=== PATIENT | male | born 1990 | race Caucasian/White ===

== ENCOUNTER 2020-01-11 12:29 | Outpatient (REF) | payer MEDICARE, MEDICAID, SELFPAY ==
[2020-01-11 13:59] LABS: MANUAL DIFF FLAG NO
[2020-01-11 14:04] LABS: Basophils Percent Auto 0.6 % (0-2); Eosinophils Absolute Auto 0.2 X10*3/uL (0.0-0.4); Eosinophils Percent Auto 4.2 % (0-4); Hematocrit 39.8 % (42-52); Hemoglobin 13.3 g/dl (14.0-18.0); Imm Gran Abs Auto 0.01 X10*3/uL (0.00-0.03); Imm Gran Pct Auto 0.3 % (0.0-0.4); Lymphocytes Absolute Auto 1.2 X10*3/uL (1.2-4.9); Lymphocytes Percent Auto 32.7 % (20-40); Mean Corpuscular HGB Conc 33.4 g/dl (31.0-36.0); Mean Corpuscular Hemoglobin 30.9 pg (27.0-33.0); Mean Corpuscular Volume 92.3 fL (80-98); Mean Platelet Volume 9.8 fL (9.4-12.4); Monocytes Absolute Auto 0.4 X10*3/uL (0.1-1.2); Monocytes Percent Auto 10.4 % (2-11); Neutrophils Absolute Auto 1.8 X10*3/uL (2.0-8.3); Neutrophils Percent Auto 51.8 % (45-73); Platelet Count 249 X10*3/uL (160-400); Red Blood Count 4.31 X10*6/uL (4.60-5.80); Red Cell Distribution Width 11.9 % (11.0-16.0); White Blood Count 3.6 X10*3/uL (4.8-10.8)
[2020-01-11 14:14] LABS: Estimated Average Glucose 108 mg/dL; Hemoglobin A1c % 5.4 %
[2020-01-11 14:33] LABS: Anion Gap 9 (12-20); Blood Urea Nitrogen 13 mg/dL (9-16); Calcium 8.6 mg/dL (8.4-10.2); Carbon Dioxide 27 mmol/L (22-29); Chloride 104 mmol/L (96-108); Cholesterol 178 mg/dL; Estimated Glomerular Filt Rate > 60; Glucose Fasting 95 mg/dL (60-99); HDL Cholesterol 50 mg/dL; LDL Cholesterol Calculated 116 mg/dl; Potassium 4.2 mmol/l (3.3-5.1); Sodium 136 mmol/L (135-145); Triglycerides 62 mg/dL
[2020-01-11 14:49] LABS: Thyroid Stimulating Hormone 1.33 uIU/mL (0.32-4.0)
[2020-01-12 13:22] LABS: Prolactin 4.9 ng/mL (2.0-18.0)
== END 2020-01-11 12:30 | disposition home or self-care (01) ==
LOC: HO.10HDL 12:29
PROVIDERS: Visit Provider Psychiatry & Neurology Child & Adolescent Psychiatry
DX: F63.81 Intermittent explosive disorder (principal); Z79.899 Other long term (current) drug therapy
CPT/HCPCS: 36415; 80048; 80061; 83036; 84146; 84443; 85025

== ENCOUNTER → 2020-02-21 10:20 | Outpatient (REF) | payer MEDICARE, MEDICAID, SELFPAY ==
--- NOTE | 2020-02-21 10:27 | ECG_ITS ---
Test Reason : HIGH RISK MED Blood Pressure : / mmHG Vent. Rate : 065 BPM Atrial Rate : 065 BPM P-R Int : 148 ms QRS Dur : 102 ms QT Int : 376 ms P-R-T Axes : 040 053 088 degrees QTc Int : 391 ms Normal sinus rhythm Incomplete right bundle branch block Borderline ECG When compared with ECG of 20-FEB-2019 16:55, No significant change was found Referred By: Osmar Hidalgo Electronically Signed By:ISRRAEL GANN MD
== END ==
LOC: HO.CARD 10:20
PROVIDERS: Visit Provider Psychiatry & Neurology Child & Adolescent Psychiatry
DX: Z79.899 Other long term (current) drug therapy (principal)
CPT/HCPCS: 93005

== ENCOUNTER → 2020-07-22 15:37 | Outpatient (REF) | payer MEDICARE, MEDICAID, SELFPAY ==
--- NOTE | 2020-07-22 15:43 | ECG_ITS ---
Test Reason : HIGH RISK MED Blood Pressure : / mmHG Vent. Rate : 077 BPM Atrial Rate : 077 BPM P-R Int : 144 ms QRS Dur : 102 ms QT Int : 360 ms P-R-T Axes : 044 054 078 degrees QTc Int : 407 ms Normal sinus rhythm with sinus arrhythmia Incomplete right bundle branch block Borderline ECG When compared with ECG of 21-FEB-2020 10:36, No significant change was found Referred By: Osmar Hidalgo Electronically Signed By:FER ROUSSEAU
== END ==
LOC: HO.CARD 15:37
PROVIDERS: PCP Internal Medicine; Visit Provider Psychiatry & Neurology Child & Adolescent Psychiatry
DX: F41.1 Generalized anxiety disorder (principal); Z79.899 Other long term (current) drug therapy
CPT/HCPCS: 93005

== ENCOUNTER 2020-07-29 08:19 | Outpatient (REF) | payer MEDICARE, MEDICAID, SELFPAY ==
[2020-07-29 09:23] LABS: MANUAL DIFF FLAG NO
[2020-07-29 09:39] LABS: Basophils Percent Auto 0.9 % (0-2); Eosinophils Absolute Auto 0.3 X10*3/uL (0.0-0.4); Eosinophils Percent Auto 7.7 % (0-4); Hematocrit 41.4 % (42-52); Hemoglobin 14.2 g/dl (14.0-18.0); Imm Gran Abs Auto 0.02 X10*3/uL (0.00-0.03); Imm Gran Pct Auto 0.5 % (0.0-0.4); Lymphocytes Absolute Auto 1.4 X10*3/uL (1.2-4.9); Lymphocytes Percent Auto 32.6 % (20-40); Mean Corpuscular HGB Conc 34.3 g/dl (31.0-36.0); Mean Corpuscular Volume 90.4 fL (80-98); Mean Platelet Volume 9.4 fL (9.4-12.4); Monocytes Absolute Auto 0.5 X10*3/uL (0.1-1.2); Monocytes Percent Auto 11.8 % (2-11); Neutrophils Percent Auto 46.5 % (45-73); Platelet Count 239 X10*3/uL (160-400); Red Blood Count 4.58 X10*6/uL (4.60-5.80); White Blood Count 4.4 X10*3/uL (4.8-10.8)
[2020-07-29 09:55] LABS: Estimated Average Glucose 105 mg/dL; Hemoglobin A1c % 5.3 %
[2020-07-29 10:14] LABS: Alanine Aminotransferase 17 U/L (0-40); Albumin Level 4.4 g/dL (3.5-5.0); Alkaline Phosphatase 51 U/L (39-117); Anion Gap 11 (12-20); Aspartate Amino Transferase 17 U/L (5-37); Bilirubin Total 0.7 mg/dL (0.0-1.0); Blood Urea Nitrogen 12 mg/dL (9-16); Calcium 9.3 mg/dL (8.4-10.2); Carbon Dioxide 30 mmol/L (22-29); Chloride 100 mmol/L (96-108); Cholesterol 163 mg/dL; Estimated Glomerular Filt Rate > 60; Glucose Fasting 94 mg/dL (60-99); HDL Cholesterol 58 mg/dL; LDL Cholesterol Calculated 91 mg/dl; Potassium 4.6 mmol/L (3.3-5.1); Sodium 136 mmol/L (135-145); Total Protein 6.4 g/dL (6.5-8.0); Triglycerides 73 mg/dL
[2020-07-30 08:42] LABS: Prolactin 5.3 ng/mL (2.0-18.0)
== END 2020-07-29 08:20 | disposition home or self-care (01) ==
LOC: HO.LAB 08:19
PROVIDERS: PCP Internal Medicine; Visit Provider Psychiatry & Neurology Child & Adolescent Psychiatry
DX: Z00.00 Encounter for general adult medical examination without abnormal findings (principal); F41.1 Generalized anxiety disorder; F91.9 Conduct disorder, unspecified; E11.9 Type 2 diabetes mellitus without complications; Z79.899 Other long term (current) drug therapy
CPT/HCPCS: 36415; 80053; 80061; 83036; 84146; 85025

== ENCOUNTER 2021-03-06 13:21 | Outpatient (REF) | payer MEDICARE, MEDICAID, SELFPAY ==
[2021-03-06 13:39] LABS: MANUAL DIFF FLAG NO
[2021-03-06 13:57] LABS: Basophils Percent Auto 0.5 % (0-2); Eosinophils Absolute Auto 0.1 X10*3/uL (0.0-0.4); Eosinophils Percent Auto 1.9 % (0-4); Hematocrit 43.2 % (42.0-52.0); Imm Gran Abs Auto 0.01 X10*3/uL (0.00-0.03); Imm Gran Pct Auto 0.2 % (0.0-0.4); Lymphocytes Absolute Auto 1.1 X10*3/uL (1.2-4.9); Lymphocytes Percent Auto 26.7 % (20-40); Mean Corpuscular HGB Conc 34.7 g/dl (31.0-36.0); Mean Corpuscular Hemoglobin 30.8 pg (27.0-33.0); Mean Corpuscular Volume 88.7 fL (80.0-98.0); Mean Platelet Volume 9.1 fL (9.4-12.4); Monocytes Absolute Auto 0.4 X10*3/uL (0.1-1.2); Monocytes Percent Auto 10.3 % (2-11); Neutrophils Absolute Auto 2.5 x10*3/uL (2.0-8.3); Neutrophils Percent Auto 60.4 % (45-73); Platelet Count 260 X10*3/uL (160-400); Red Blood Count 4.87 X10*6/uL (4.60-5.80); Red Cell Distribution Width 11.9 % (11.0-16.0); White Blood Count 4.2 X10*3/uL (4.8-10.8)
[2021-03-06 14:23] LABS: Alanine Aminotransferase 21 U/L (0-40); Albumin Level 4.7 g/dL (3.5-5.0); Alkaline Phosphatase 67 U/L (39-117); Anion Gap 10 (12-20); Aspartate Amino Transferase 17 U/L (5-37); Bilirubin Total 0.4 mg/dL (0.0-1.0); Blood Urea Nitrogen 11 mg/dL (9-16); Calcium 9.5 mg/dL (8.4-10.2); Carbon Dioxide 31 mmol/L (22-29); Chloride 98 mmol/L (96-108); Estimated Glomerular Filt Rate > 60; Glucose Random 105 mg/dL (60-115); Potassium 4.9 mmol/L (3.3-5.1); Sodium 134 mmol/L (135-145); Total Protein 7.1 g/dL (6.5-8.0)
== END 2021-03-06 13:22 | disposition home or self-care (01) ==
LOC: HO.LAB 13:21
PROVIDERS: PCP Internal Medicine; Visit Provider Psychiatry & Neurology Child & Adolescent Psychiatry
DX: F41.1 Generalized anxiety disorder (principal)
CPT/HCPCS: 36415; 80053; 85025

== ENCOUNTER 2021-07-31 13:32 | Outpatient (REF) | payer MEDICARE, MEDICAID, SELFPAY ==
[2021-07-31 13:49] LABS: MANUAL DIFF FLAG NO
[2021-07-31 13:59] LABS: Basophils Percent Auto 0.4 % (0-2); Eosinophils Absolute Auto 0.2 X10*3/uL (0.0-0.4); Eosinophils Percent Auto 3.9 % (0-4); Hematocrit 38.8 % (42.0-52.0); Hemoglobin 13.4 g/dl (14.0-18.0); Imm Gran Abs Auto 0.01 X10*3/uL (0.00-0.03); Imm Gran Pct Auto 0.2 % (0.0-0.4); Lymphocytes Percent Auto 20.9 % (20-40); Mean Corpuscular HGB Conc 34.5 g/dl (31.0-36.0); Mean Corpuscular Hemoglobin 30.7 pg (27.0-33.0); Mean Platelet Volume 9.4 fL (9.4-12.4); Monocytes Absolute Auto 0.4 X10*3/uL (0.1-1.2); Monocytes Percent Auto 9.4 % (2-11); Neutrophils Percent Auto 65.2 % (45-73); Platelet Count 219 X10*3/uL (160-400); Red Blood Count 4.36 X10*6/uL (4.60-5.80); Red Cell Distribution Width 11.8 % (11.0-16.0); White Blood Count 4.6 X10*3/uL (4.8-10.8)
[2021-07-31 14:31] LABS: Alanine Aminotransferase 20 U/L (0-40); Albumin Level 4.3 g/dL (3.5-5.0); Alkaline Phosphatase 53 U/L (39-117); Anion Gap 8 (12-20); Aspartate Amino Transferase 18 U/L (5-37); Bilirubin Total 0.7 mg/dL (0.0-1.0); Blood Urea Nitrogen 10 mg/dL (9-16); Calcium 8.8 mg/dL (8.4-10.2); Carbon Dioxide 29 mmol/L (22-29); Chloride 98 mmol/L (96-108); Estimated Glomerular Filt Rate > 60; Glucose Random 121 mg/dL (60-115); Potassium 4.2 mmol/L (3.3-5.1); Sodium 131 mmol/L (135-145); Total Protein 6.2 g/dL (6.5-8.0)
== END 2021-07-31 13:33 | disposition home or self-care (01) ==
LOC: HO.LAB 13:32
PROVIDERS: PCP Internal Medicine; Visit Provider Psychiatry & Neurology Child & Adolescent Psychiatry
DX: F84.0 Autistic disorder (principal)
CPT/HCPCS: 36415; 80053; 85025

== ENCOUNTER 2022-03-09 09:24 | Outpatient (REF) | payer MEDICARE, MEDICAID, SELFPAY ==
[2022-03-09 09:40] LABS: MANUAL DIFF FLAG NO
[2022-03-09 10:31] LABS: Basophils Percent Auto 0.8 % (0-2); Eosinophils Absolute Auto 0.1 X10*3/uL (0.0-0.4); Eosinophils Percent Auto 3.1 % (0-4); Hematocrit 46.3 % (42.0-52.0); Hemoglobin 15.7 g/dl (14.0-18.0); Imm Gran Abs Auto 0.01 X10*3/uL (0.00-0.03); Imm Gran Pct Auto 0.3 % (0.0-0.4); Mean Corpuscular HGB Conc 33.9 g/dl (31.0-36.0); Mean Corpuscular Hemoglobin 31.6 pg (27.0-33.0); Mean Corpuscular Volume 93.2 fL (80.0-98.0); Mean Platelet Volume 9.6 fL (9.4-12.4); Monocytes Absolute Auto 0.4 X10*3/uL (0.1-1.2); Monocytes Percent Auto 11.5 % (2-11); Neutrophils Absolute Auto 2.2 x10*3/uL (2.0-8.3); Neutrophils Percent Auto 57.3 % (45-73); Platelet Count 237 X10*3/uL (160-400); Red Blood Count 4.97 X10*6/uL (4.60-5.80); White Blood Count 3.8 X10*3/uL (4.8-10.8)
[2022-03-09 11:17] LABS: Alanine Aminotransferase 18 U/L (0-40); Albumin Level 4.4 g/dL (3.5-5.0); Alkaline Phosphatase 41 U/L (39-117); Anion Gap 11 (12-20); Aspartate Amino Transferase 19 U/L (5-37); Bilirubin Total 0.9 mg/dL (0.0-1.0); Blood Urea Nitrogen 10 mg/dL (9-16); Calcium 9.1 mg/dL (8.4-10.2); Carbon Dioxide 29 mmol/L (22-29); Chloride 103 mmol/L (96-108); Cholesterol 153 mg/dL; Estimated Glomerular Filt Rate > 60; Glucose Fasting 100 mg/dL (60-99); HDL Cholesterol 52 mg/dL; LDL Cholesterol Calculated 91 mg/dl; Potassium 4.6 mmol/L (3.3-5.1); Sodium 138 mmol/L (135-145); Total Protein 6.2 g/dL (6.5-8.0); Triglycerides 54 mg/dL
[2022-03-09 11:21] LABS: Thyroid Stimulating Hormone 0.69 uIU/mL (0.32-4.0)
== END 2022-03-09 09:25 | disposition home or self-care (01) ==
LOC: HO.LAB 09:24
PROVIDERS: PCP Internal Medicine; Visit Provider Internal Medicine
DX: E78.5 Hyperlipidemia, unspecified (principal); E03.9 Hypothyroidism, unspecified; N28.9 Disorder of kidney and ureter, unspecified; D64.9 Anemia, unspecified
CPT/HCPCS: 36415; 80053; 80061; 84443; 85025

== ENCOUNTER 2022-08-16 11:40 | Outpatient (AMB) | payer MEDICARE, MEDICAID, SELFPAY ==
--- NOTE | 2022-08-16 11:44 | MHC.PC.OV ---
Vital Signs 08/16/22 11:45 Height 5 ft 2 in Weight 149 lb 6 oz BMI 27.3 BP 110/70 Blood Pressure Location Lt brachial Position Sitting Pulse 69 Pulse Source Pulse Oximeter Pulse Oximetry (%) 98 Oxygen Delivery Method Room Air Intake Visit Reasons: Discuss white blood cell count Intake Note: Patient is here to follow up on Lab results. Drying Tumbler Operator Required: No Parking Line Painter: Present Accompanied by: staff Allergies benzoin [BENZOIN] Allergy (Severe, Verified 08/16/22 11:44) RASH lactose Allergy (Unknown, Verified 08/16/22 11:44) Unknown From UNASYN Allergy (Severe, Uncoded 08/16/22 11:44) RASH Medication List - Last Reconciled 08/16/22 by Abdoul Richard MD oxcarbazepine 150 mg PO BID oxcarbazepine 300 mg PO BID quetiapine mg PO trazodone 50 mg PO BEDTIME Tobacco use date assessed: 08/16/22 Dental Screening Dental Screen Date: 08/16/22 Did you have a dental visit in the last 12 months?: Yes Did you have a dental problem in the last 6 months where you did not have access to dental care?: No Was dental information given to patient?: Patient has dentist HPI Discuss white blood cell count HPI Details has been on multiple psych meds and his WBC usuallyin the 3.5-4.0 range; his mother also runs low so may be playing a role; not of concern but will monitor [facility] Medical History Cognitive developmental delay Surgical History History of cranial surgery History of mandibular surgery History of nasal surgery Family History Father No problems noted. Mother No problems noted. Social History Housing: Other (fci) Alcohol intake: never Patient Tobacco Use Status: Never used Tobacco e-Cigarette/Vaping Use: Never Used Second Hand Smoke Exposure: No service: No Current occupational status: disabled Cognitive needs: Yes Hearing needs: No Vision needs: No Questionnaire PHQ-9 Over the last 2 weeks, how often have you been bothered by any of the following problems? Depression Screening Interpretation: Negative Source: Developed by Drs. Nir Snyder, Estefanía Ortiz, Arjun Henriquez and colleagues, with an educational manuela from [employer]. Thrive Questionnaire Date Thrive assessed: 03/08/22 Currently or been in a relationship where the following occur: no concerns reported TERESITA-7 AMB Questionnaire TERESITA-7 Date TERESITA - 7 assessed: 03/08/22 Source: Developed by Drs. Nir Snyder, Estefanía Ortiz, Arjun Henriquez and colleagues, with an educational manuela from [employer]. Review of Systems Const Denies chills, Denies headache(s) and Denies weight loss ENT Denies headache(s) Card Denies chest pain, Denies syncope, Denies irregular heart rhythm and Denies dyspnea Resp Denies chest congestion, Denies cough and Denies dyspnea GI Denies abdominal pain, Denies change in stool character, Denies nausea and Denies vomiting Musc Denies deformity and Denies joint swelling Neuro Denies syncope and Denies headache(s) Physical exam (Primary Care) Vital Signs: Last Vital Signs Pulse 69 08/16/22 11:45 BP 110/70 08/16/22 11:45 Pulse Ox 98 08/16/22 11:45 Oxygen Delivery Method Room Air 08/16/22 11:45 BMI result Body Mass Index 27.3 Tobacco/Smoking Status: Tobacco use Status Tobacco use date assessed 08/16/22 08/16/22 11:51 Patient Tobacco Use Status Never used Tobacco 08/16/22 11:51 e-Cigarette/Vaping Use Never Used 08/16/22 11:51 Depression Screening Interpretation: Negative Thrive Assessment: Date of Thrive Assessment Date Thrive assessed 03/08/22 08/16/22 11:51 Currently or been in a relationship where the following occur: no concerns reported Const General: cooperative, healthy appearing and no acute distress Orientation/consciousness: oriented to person, oriented to place and oriented to time HENMT Head: Yes normal to inspection, Yes normocephalic and Yes atraumatic Mouth: Normal oral and palatal mucosa present and tongue normal Throat: Yes posterior oropharynx normal and Yes uvula midline Eyes General: appearance normal, both eyes and all related structures Neck Neck: Yes normal visual inspection, Yes full ROM and Yes no lymphadenopathy Thyroid: Thyroid normal Carotids: normal carotid upstroke Chest Chest palpation & inspection: normal inspection of the chest Resp Effort & Inspection: normal respiratory effort and able to speak in complete sentences Auscultation: clear to auscultation bilaterally Cardio Jugular venous distension: no JVD Palpation: normal PMI Rate: regular rate Rhythm: regular rhythm Heart sounds: S1 normal heart sound present and S2 normal heart sound present GI Inspection: Yes normal to inspection Palpation (GI): Soft to palpation and No hepatosplenomegaly present Auscultation: normal bowel sounds General: Yes no CVA tenderness Back/Spine/Pelvis Back: no CVA tenderness Skin General skin exam: no rashes or lesions noted Neuro General: oriented to person, oriented to place and oriented to time Extrem General: Yes normal to inspection and Yes full ROM Assessment and Plan Assessment & Plan (1) Leukopenia: Code(s): D72.819 - Decreased white blood cell count, unspecified Plan: obtain recent labs from [facility] and monitor Coding Level of Care Code Est Pt Level 3 (17739) Diagnoses Leukopenia D72.819
[2022-08-16 11:45] VITALS: BP 110/70; PULSE 69; O2SAT 98; BMI 27.3
== END 2022-08-16 12:04 | disposition home or self-care (01) ==
LOC: HO.HMGH 11:40
PROVIDERS: PCP Internal Medicine; Visit Provider Internal Medicine
DX: D72.819 Decreased white blood cell count, unspecified (principal)
CPT/HCPCS: 99213

== ENCOUNTER 2022-10-12 14:13 | Outpatient (AMB) | payer MEDICARE, MEDICAID, SELFPAY ==
[2022-10-12 14:15] VITALS: BP 116/72; PULSE 68; O2SAT 98; BMI 27.2
--- NOTE | 2022-10-12 14:15 | A.OFFPC_ITS ---
Vital Signs 10/12/22 14:15 Height 5 ft 2 in Weight 149 lb BMI 27.2 BP 116/72 Blood Pressure Location Lt brachial Position Sitting Pulse 68 Pulse Source Pulse Oximeter Pulse Oximetry (%) 98 Oxygen Delivery Method Room Air Intake Visit Reasons: 6mth f/u Glass Cutter Hand: Not Required per policy Accompanied by: Self / Same As Patient Allergies benzoin [BENZOIN] Allergy (Severe, Verified 10/12/22 14:16) RASH lactose Allergy (Unknown, Verified 10/12/22 14:16) Unknown From UNASYN Allergy (Severe, Uncoded 10/12/22 14:16) RASH Medication List - Last Reconciled 10/12/22 by Abdoul Richard MD oxcarbazepine 150 mg PO BID oxcarbazepine 300 mg PO BID quetiapine mg PO trazodone 50 mg PO BEDTIME Tobacco use date assessed: 08/16/22 Dental Screening Dental Screen Date: 10/12/22 Did you have a dental visit in the last 12 months?: Yes Did you have a dental problem in the last 6 months where you did not have access to dental care?: No Was dental information given to patient?: Patient has dentist HPI 6mth f/u HPI Details multiple psych issues; dpoing well and compliant [facility] Medical History Cognitive developmental delay Surgical History History of cranial surgery History of mandibular surgery History of nasal surgery Family History Father No problems noted. Mother No problems noted. Social History Housing: Other (alf) Alcohol intake: never Patient Tobacco Use Status: Never used Tobacco e-Cigarette/Vaping Use: Never Used Second Hand Smoke Exposure: No service: No Current occupational status: disabled Cognitive needs: Yes Hearing needs: No Vision needs: No Questionnaire PHQ-9 Over the last 2 weeks, how often have you been bothered by any of the following problems? 1. Little interest or pleasure in doing things: not at all 2. Feeling down, depressed, or hopeless: not at all 3. Trouble falling or staying asleep, or sleeping too much: not at all 4. Feeling tired or having little energy: not at all 5. Poor appetite or overeating: not at all 6. Feeling bad about yourself - or that you are a failure or have let yourself or your family down: not at all 7. Trouble concentrating on things, such as reading the newspaper or watching television: not at all 8. Moving or speaking so slowly that other people could have noticed. Or the opposite - being so fidgety or restless that you have been moving around a lot more than usual: not at all 9. Thoughts that you would be better off or of hurting yourself in some way: not at all Total score: 0 Depression Screening Interpretation: Negative Source: Developed by Drs. Nir Snyder, Estefanía Ortiz, Arjun Henriquez and colleagues, with an educational manuela from [employer]. Thrive Questionnaire Date Thrive assessed: 03/08/22 Currently or been in a relationship where the following occur: no concerns reported AUDIT C Alcohol Use Questionnaire (AUDIT-C) 1. How often do you have a drink containing alcohol?: Never 3. How often do you have six or more drinks on one occasion?: Never Total Score: 0 Score Reviewed/Action Taken: Yes TERESITA-7 AMB Questionnaire TERESITA-7 Date TERESITA - 7 assessed: 10/12/22 Feeling nervous, anxious, or on edge: 1 = Several days Not being able to stop or control worryin = Several days Worrying too much about different things: 1 = Several days Trouble relaxin = Several days Being so restless that it is hard to sit still: 1 = Several days Becoming easily annoyed or irritable: 1 = Several days Feeling afraid as if something awful might happen: 1 = Several days Total TERESITA-7 score (0-4 normal; 5-9 mild; 10-14 moderate; 15-21 severe): 7 Source: Developed by Drs. Nir Snyder, Estefanía Ortiz, Arjun Henriquez and colleagues, with an educational manuela from [employer]. Review of Systems Const Denies chills, Denies headache(s) and Denies weight loss ENT Denies headache(s) Card Denies chest pain, Denies syncope, Denies irregular heart rhythm and Denies dyspnea Resp Denies chest congestion, Denies cough and Denies dyspnea GI Denies abdominal pain, Denies change in stool character, Denies nausea and Denies vomiting Musc Denies deformity and Denies joint swelling Neuro Denies syncope and Denies headache(s) Physical exam (Primary Care) Vital Signs: Last Vital Signs Pulse 68 10/12/22 14:15 BP 116/72 10/12/22 14:15 Pulse Ox 98 10/12/22 14:15 Oxygen Delivery Method Room Air 10/12/22 14:15 BMI result Body Mass Index 27.2 Tobacco/Smoking Status: Tobacco use Status Tobacco use date assessed 08/16/22 10/12/22 14:21 Patient Tobacco Use Status Never used Tobacco 10/12/22 14:21 e-Cigarette/Vaping Use Never Used 10/12/22 14:21 PHQ-9: PHQ-9 Score PHQ-9: Total score 0 10/12/22 14:21 Depression Screening Interpretation: Negative Thrive Assessment: Date of Thrive Assessment Date Thrive assessed 03/08/22 10/12/22 14:21 Currently or been in a relationship where the following occur: no concerns reported Const General: cooperative, healthy appearing and no acute distress Orientation/consciousness: oriented to person, oriented to place and oriented to time HENMT Head: Yes normal to inspection, Yes normocephalic and Yes atraumatic Mouth: Normal oral and palatal mucosa present and tongue normal Throat: Yes posterior oropharynx normal and Yes uvula midline Eyes General: appearance normal, both eyes and all related structures Neck Neck: Yes normal visual inspection, Yes full ROM and Yes no lymphadenopathy Thyroid: Thyroid normal Carotids: normal carotid upstroke Chest Chest palpation & inspection: normal inspection of the chest Resp Effort & Inspection: normal respiratory effort and able to speak in complete sentences Auscultation: clear to auscultation bilaterally Cardio Jugular venous distension: no JVD Palpation: normal PMI Rate: regular rate Rhythm: regular rhythm Heart sounds: S1 normal heart sound present and S2 normal heart sound present GI Inspection: Yes normal to inspection Palpation (GI): Soft to palpation and No hepatosplenomegaly present Auscultation: normal bowel sounds General: Yes no CVA tenderness Back/Spine/Pelvis Back: no CVA tenderness Skin General skin exam: no rashes or lesions noted Neuro General: oriented to person, oriented to place and oriented to time Extrem General: Yes normal to inspection and Yes full ROM Assessment and Plan Assessment & Plan (1) Cognitive developmental delay: Code(s): F81.9 - Developmental disorder of scholastic skills, unspecified Plan: f/u with psych Coding Level of Care Code Est Pt Level 3 (24247) Diagnoses Cognitive developmental delay F81.9
== END 2022-10-12 14:31 | disposition home or self-care (01) ==
PROVIDERS: PCP Internal Medicine; Visit Provider Internal Medicine
DX: F81.9 Developmental disorder of scholastic skills, unspecified (principal)
CPT/HCPCS: 99213

== ENCOUNTER → 2022-11-08 13:47 | Outpatient (BNV) | payer MEDICARE, MEDICAID, SELFPAY | PROVIDERS: PCP Internal Medicine; Referring Provider Internal Medicine; Visit Provider Internal Medicine Medical Oncology | DX: D72.819 Decreased white blood cell count, unspecified (principal) | CPT/HCPCS: 99204 ==

== ENCOUNTER 2023-04-01 13:44 | Outpatient (AMB) | payer MEDICARE, MEDICAID, SELFPAY ==
[2023-04-01 13:48] VITALS: BP 130/80; PULSE 93; O2SAT 98; BMI 26.7
--- NOTE | 2023-04-01 13:49 | AM.OFFVISMDC ---
Intake Vital Signs 04/01/23 13:48 Height 5 ft 2 in Weight 146 lb BMI 26.7 BP 130/80 Blood Pressure Location Lt brachial Position Sitting Pulse 93 Pulse Source Pulse Oximeter Pulse Oximetry (%) 98 Oxygen Delivery Method Room Air Intake Visit Reasons: AWV Allergies benzoin [BENZOIN] Allergy (Severe, Verified 04/01/23 13:49) RASH lactose Allergy (Unknown, Verified 04/01/23 13:49) Unknown From UNASYN Allergy (Severe, Uncoded 04/01/23 13:49) RASH Medication List - Last Reconciled 04/04/23 by Abdoul Rcihard MD alclometasone 0.05% 0.05 appl topical DAILY PRN ketoconazole 2% 0.05 appl topical 2XW oxcarbazepine 150 mg PO BID oxcarbazepine 300 mg PO BID quetiapine 100 mg PO DAILY trazodone 50 mg PO BEDTIME HPI AWV HPI Details cognitive delay on rx; stable PFSH Medical History Cognitive developmental delay Surgical History History of nasal surgery History of cranial surgery History of mandibular surgery Family History Father No problems noted. Mother No problems noted. Social History (Updated 11/08/22 @ 14:04 by Marco A Hylton) Housing: Other (custodial) Alcohol intake: never Patient Tobacco Use Status: Never used Tobacco e-Cigarette/Vaping Use: Never Used Second Hand Smoke Exposure: No service: No Current occupational status: disabled Cognitive needs: Yes Hearing needs: No Vision needs: No Questionnaire Medicare Wellness Checkup What gender do you identify with?: male During the past 4 weeks, how much have you been bothered by emotional problems such as feeling anxious, depressed, irritable, sad or downhearted, and blue?: moderately During the past 4 weeks, has your physical & emotional health limited your social activities with family, friends, neighbors, or groups?: not at all During the past 4 weeks, how much bodily pain have you generally had?: no pain During the past 4 weeks, was someone available to help you if you needed & wanted help?: yes, as much as I wanted During the past 4 weeks, what was the hardest physical activity you could do for at least 2 minutes?: very light Can you get to places out of walking distance without help? (For eg., can you travel alone on buses, taxis or drive your car?): Yes Can you go shopping for groceries or clothes without someone's help?: No Can you prepare your own meals?: No Can you do your housework without help?: No Because of any health problems, do you need the help of another person with your personal care needs such as eating, bathing, dressing or getting around the house?: No Can you handle your own money without help?: No During the past 4 weeks, how would you rate your health in general?: excellent During the past 4 weeks how have things been going for you?: very well; could hardly better Are you having difficulties driving your car?: not applicable, I don't use a car Do you always fasten your seat belt when you are in a car?: yes, usually During past 4 weeks, have you been bothered by the following: never: Falling or dizzy when standing up, Sexual problems?, Trouble eating well?, Teeth or denture problems?, Problems using the telephone? and Tiredness or fatigue? Have you fallen 2 or more times in the past year?: No Are you afraid of falling?: No Are you a smoker?: no During the past 4 weeks, how many drinks of wine, beer, or other alcoholic beverages did you have?: no alcohol at all Do you exercise for about 20 minutes 3 or more times a week?: yes, most of the time Have you been given information to help with the following?: yes: Keeping track of your medications? and no: Hazards in your house that might hurt you? How often do you have trouble taking medicines the way you have been told to take them?: I always take medicine as prescribed How confident are you that you can control & manage most of your health problems?: very confident What is your race?: White Mini Mental State Exam (MMSE) Language Ask the patient to repeat the phrase 'No ifs, ands, or buts' after you.: incorrect Score Score: 0 Activity of Daily Living Bathing - sponge bath, tub bath or shower: receives help in bathing more than one body part (or not bathed) Dressing - getting clothes from closets & drawers, including inner/outer garments & fasteners.: receives help getting clothes or getting dressed, or stays undressed Toileting - going to the 'toilet room' for urine/bowel elimination & cleaning self/arranging clothes: does not go to room termed toilet for elimination process Transfer: moves in & out of bed and chair without help (may use support object) Continence: has occasional 'accidents' Feeding: feeds self except getting help in cutting meat/buttering bread Total Score: 3 Information obtained from: informant Using telephone: dependent Traveling: dependent Shopping: dependent Preparing meals: dependent Housework: dependent Taking medicine: dependent Managing money: dependent PHQ-9 Over the last 2 weeks, how often have you been bothered by any of the following problems? 1. Little interest or pleasure in doing things: not at all 2. Feeling down, depressed, or hopeless: not at all 3. Trouble falling or staying asleep, or sleeping too much: not at all 4. Feeling tired or having little energy: not at all 5. Poor appetite or overeating: not at all 6. Feeling bad about yourself - or that you are a failure or have let yourself or your family down: not at all 7. Trouble concentrating on things, such as reading the newspaper or watching television: not at all 8. Moving or speaking so slowly that other people could have noticed. Or the opposite - being so fidgety or restless that you have been moving around a lot more than usual: not at all 9. Thoughts that you would be better off or of hurting yourself in some way: not at all Total score: 0 Depression Screening Interpretation: Negative Depression Screening Done: Yes 72742 - PHQ-9 Billing: Yes Source: Developed by Drs. Nir Snyder, Estefanía Ortiz, Arjun Henriquez and colleagues, with an educational manuela from [employer]. Review of Systems Const Denies chills, Denies fatigue, Denies headache(s) and Denies weight loss Eyes Denies change in vision, Denies diplopia and Denies eye pain ENT Reports Normal hearing present, Denies vertigo, Denies dizziness, Denies headache(s) and Denies nasal discharge Card Denies chest pain, Denies rapid heart rate and Denies dyspnea on exertion Resp Denies chest congestion, Denies cough, Denies pain with cough and Denies dyspnea on exertion GI Denies abdominal pain, Denies hematochezia and Denies change in bowel habits Musc Denies myalgias, Denies arthralgias and Denies joint swelling Skin/Breast Denies lesions and Denies unusual bruising Neuro Reports Normal hearing present, Denies vertigo, Denies dizziness, Denies headache(s) and Denies focal weakness Endo Denies fatigue Physical Exam Vital Signs: Last Vital Signs Pulse 93 04/01/23 13:48 BP 130/80 04/01/23 13:48 Pulse Ox 98 04/01/23 13:48 Oxygen Delivery Method Room Air 04/01/23 13:48 BMI result Body Mass Index 26.7 Neuro Cranial nerves: Yes Normal hearing present Assessment & Plan Assessment & Plan (1) Encounter for initial annual wellness visit (AWV) in Medicare patient: Code(s): Z00.00 - Encounter for general adult medical examination without abnormal findings Plan: whisper and romberg tests nl Orders: Orders Complete Blood Count Auto Diff 04/01/23 D64.9 - Anemia, unspecified Comprehensive [place]. Panel Fast 04/01/23 N28.9 - Disorder of kidney and ureter, unspecified Lipid Panel 04/01/23 E78.5 - Hyperlipidemia, unspecified Thyroid Stimulating Hormone 04/01/23 E03.9 - Hypothyroidism, unspecified Quality Reporting (2019) Depression/Bipolar (159/160/161/177) PHQ-9: Total score: 0 Coding Level of Care Code Medicare First (G0438) Diagnoses Encounter for initial annual wellness visit (AWV) in Medicare patient Z00.00
== END 2023-04-01 14:12 | disposition home or self-care (01) ==
PROVIDERS: PCP Internal Medicine; Visit Provider Internal Medicine
DX: Z00.00 Encounter for general adult medical examination without abnormal findings (principal)
CPT/HCPCS: G0438

== ENCOUNTER 2023-06-04 09:11 | Outpatient (REF) | payer MEDICARE, MEDICAID, SELFPAY ==
[2023-06-04 09:21] LABS: MANUAL DIFF FLAG NO
[2023-06-04 09:31] LABS: Basophils Percent Auto 0.9 % (0-2); Eosinophils Absolute Auto 0.3 X10*3/uL (0.0-0.4); Eosinophils Percent Auto 5.7 % (0-4); Hematocrit 42.3 % (42.0-52.0); Hemoglobin 14.9 g/dl (14.0-18.0); Imm Gran Abs Auto 0.01 X10*3/uL (0.00-0.03); Imm Gran Pct Auto 0.2 % (0.0-0.4); Lymphocytes Absolute Auto 1.5 X10*3/uL (1.2-4.9); Lymphocytes Percent Auto 34.6 % (20-40); Mean Corpuscular HGB Conc 35.2 g/dl (31.0-36.0); Mean Corpuscular Hemoglobin 31.8 pg (27.0-33.0); Mean Corpuscular Volume 90.4 fL (80.0-98.0); Mean Platelet Volume 9.4 fL (9.4-12.4); Monocytes Absolute Auto 0.5 X10*3/uL (0.1-1.2); Monocytes Percent Auto 10.8 % (2-11); Neutrophils Absolute Auto 2.1 x10*3/uL (2.0-8.3); Neutrophils Percent Auto 47.8 % (45-73); Platelet Count 228 X10*3/uL (160-400); Red Blood Count 4.68 X10*6/uL (4.60-5.80); White Blood Count 4.4 X10*3/uL (4.8-10.8)
[2023-06-04 10:27] LABS: Alanine Aminotransferase 26 U/L (0-40); Albumin Level 4.4 g/dL (3.5-5.0); Alkaline Phosphatase 68 U/L (39-117); Anion Gap 11 (12-20); Aspartate Amino Transferase 18 U/L (5-37); Bilirubin Total 0.3 mg/dL (0.0-1.0); Blood Urea Nitrogen 13 mg/dL (9-16); Calcium 9.1 mg/dL (8.4-10.2); Carbon Dioxide 25 mmol/L (22-29); Chloride 110 mmol/L (96-108); Cholesterol 148 mg/dL (<200); Estimated Glomerular Filt Rate > 60; Glucose Fasting 107 mg/dL (60-99); HDL Cholesterol 52 mg/dL (>40); LDL Cholesterol Calculated 91 mg/dL (<100); Potassium 4.6 mmol/L (3.3-5.1); Sodium 141 mmol/L (135-145); Total Protein 6.7 g/dL (6.5-8.0); Triglycerides 26 mg/dL (<150)
[2023-06-04 10:42] LABS: Thyroid Stimulating Hormone 1.88 uIU/mL (0.32-4.0)
== END 2023-06-04 09:12 | disposition home or self-care (01) ==
LOC: HO.LAB 09:11
PROVIDERS: PCP Internal Medicine; Visit Provider Internal Medicine
DX: D64.9 Anemia, unspecified (principal); E03.9 Hypothyroidism, unspecified; E78.5 Hyperlipidemia, unspecified; N28.9 Disorder of kidney and ureter, unspecified
CPT/HCPCS: 36415; 80053; 80061; 84443; 85025

== ENCOUNTER 2023-08-27 07:22 | Outpatient (REF) | payer MEDICARE, MEDICAID, SELFPAY ==
[2023-08-27 08:04] LABS: MANUAL DIFF FLAG NO
[2023-08-27 08:16] LABS: Basophils Percent Auto 0.7 % (0-2); Eosinophils Absolute Auto 0.3 X10*3/uL (0.0-0.4); Eosinophils Percent Auto 4.3 % (0-4); Hematocrit 42.6 % (42.0-52.0); Hemoglobin 15.2 g/dl (14.0-18.0); Imm Gran Abs Auto 0.01 X10*3/uL (0.00-0.03); Imm Gran Pct Auto 0.2 % (0.0-0.4); Lymphocytes Absolute Auto 1.7 X10*3/uL (1.2-4.9); Lymphocytes Percent Auto 27.3 % (20-40); Mean Corpuscular HGB Conc 35.7 g/dl (31.0-36.0); Mean Corpuscular Hemoglobin 31.6 pg (27.0-33.0); Mean Corpuscular Volume 88.6 fL (80.0-98.0); Mean Platelet Volume 9.1 fL (9.4-12.4); Monocytes Absolute Auto 0.6 X10*3/uL (0.1-1.2); Neutrophils Absolute Auto 3.6 x10*3/uL (2.0-8.3); Neutrophils Percent Auto 58.5 % (45-73); Platelet Count 263 X10*3/uL (160-400); Red Blood Count 4.81 X10*6/uL (4.60-5.80); Red Cell Distribution Width 11.9 % (11.0-16.0); White Blood Count 6.1 X10*3/uL (4.8-10.8)
[2023-08-27 08:43] LABS: Alanine Aminotransferase 17 U/L (0-40); Albumin Level 4.7 g/dL (3.5-5.0); Alkaline Phosphatase 57 U/L (39-117); Anion Gap 12 (12-20); Aspartate Amino Transferase 17 U/L (5-37); Bilirubin Total 0.4 mg/dL (0.0-1.0); Blood Urea Nitrogen 10 mg/dL (9-16); Calcium 9.4 mg/dL (8.4-10.2); Carbon Dioxide 27 mmol/L (22-29); Chloride 103 mmol/L (96-108); Estimated Glomerular Filt Rate > 60; Glucose Random 107 mg/dL (60-115); Potassium 4.3 mmol/L (3.3-5.1); Sodium 138 mmol/L (135-145); Total Protein 6.8 g/dL (6.5-8.0)
[2023-08-30 21:04] LABS: Oxcarbazepine 13.2 mcg/mL (8.0-35.0)
== END 2023-08-27 07:23 | disposition home or self-care (01) ==
LOC: HO.LAB 07:22
PROVIDERS: PCP Internal Medicine; Visit Provider Clinical Nurse Specialist Psychiatric/Mental Health, Adult
DX: F63.81 Intermittent explosive disorder (principal); F41.1 Generalized anxiety disorder; Z51.81 Encounter for therapeutic drug level monitoring
CPT/HCPCS: 36415; 80053; 80339; 85025

== ENCOUNTER 2023-11-08 11:41 | Outpatient (AMB) | payer MEDICARE, MEDICAID, SELFPAY ==
[2023-11-08 11:43] VITALS: BP 112/68; PULSE 63; O2SAT 98; BMI 29.1
--- NOTE | 2023-11-08 11:43 | A.OFFPC_ITS ---
Vital Signs 11/08/23 11:43 Height 5 ft 2 in Weight 159 lb BMI 29.1 BP 112/68 Blood Pressure Location Lt brachial Position Sitting Pulse 63 Pulse Source Pulse Oximeter Pulse Oximetry (%) 98 Oxygen Delivery Method Room Air Intake Visit Reasons: 6mth f/u RE 09/29 Funeral Attendant Required: No Accompanied by: Staff Allergies benzoin [BENZOIN] Allergy (Severe, Verified 11/08/23 11:44) RASH lactose Allergy (Unknown, Verified 11/08/23 11:44) Unknown From UNASYN Allergy (Severe, Uncoded 11/08/23 11:44) RASH Medication List - Last Reconciled 11/08/23 by Abdoul Richard MD acetaminophen (Tylenol) 650 mg (2 x 325 mg) PO Q6H PRN alclometasone 0.05% 0.05 appl topical DAILY PRN ketoconazole 2% 0.05 appl topical 2XW oxcarbazepine 150 mg PO BID oxcarbazepine 300 mg PO BID quetiapine 100 mg PO DAILY trazodone 50 mg PO BEDTIME Tobacco use date assessed: 11/08/23 Dental Screening Dental Screen Date: 11/08/23 Did you have a dental visit in the last 12 months?: Yes Did you have a dental problem in the last 6 months where you did not have access to dental care?: No Was dental information given to patient?: Patient has dentist HPI 6m/u RE 09/29 HPI Details cognitive delay and sees psych; doing well PFSH Medical History Cognitive developmental delay Surgical History History of nasal surgery History of cranial surgery History of mandibular surgery Family History Father No problems noted. Mother No problems noted. Social History (Updated 11/08/22 @ 14:04 by Marco A Hylton) Housing: Other (alf) Alcohol intake: never Patient Tobacco Use Status: Never used Tobacco Tobacco use type: Cigarette e-Cigarette/Vaping Use: Never Used Second Hand Smoke Exposure: No service: No Current occupational status: disabled Cognitive needs: Yes Hearing needs: No Vision needs: No Questionnaire PHQ-9 Over the last 2 weeks, how often have you been bothered by any of the following problems? 1. Little interest or pleasure in doing things: not at all 2. Feeling down, depressed, or hopeless: not at all 3. Trouble falling or staying asleep, or sleeping too much: not at all 4. Feeling tired or having little energy: not at all 5. Poor appetite or overeating: not at all 6. Feeling bad about yourself - or that you are a failure or have let yourself or your family down: not at all 7. Trouble concentrating on things, such as reading the newspaper or watching television: not at all 8. Moving or speaking so slowly that other people could have noticed. Or the opposite - being so fidgety or restless that you have been moving around a lot more than usual: not at all 9. Thoughts that you would be better off or of hurting yourself in some way: not at all Total score: 0 Depression Screening Interpretation: Negative Depression Screening Done: Yes 00201 - PHQ-9 Billing: Yes Source: Developed by Drs. Nir Snyder, Estefanía Ortiz, Arjun Henriquez and colleagues, with an educational manuela from [employer] Thrive Questionnaire Date Thrive assessed: 11/08/23 I am a: Patient What is your living situation today?: I have a steady place to live Within the past 12 months, did the food you bought not last and you didn't have the money to get more?: Never true Within the past 12 months, did you worry whether your food would run out before you got money to buy more?: Never true Are you currently unemployed and looking for a job?: No THRIVE Score: 0 AUDIT C Alcohol Use Questionnaire (AUDIT-C) 1. How often do you have a drink containing alcohol?: Never 3. How often do you have six or more drinks on one occasion?: Never Total Score: 0 Score Reviewed/Action Taken: Yes TERESITA-7 AMB Questionnaire TERESITA-7 Date TERESITA - 7 assessed: 11/08/23 Feeling nervous, anxious, or on edge: 1 = Several days Not being able to stop or control worryin = Several days Worrying too much about different things: 1 = Several days Trouble relaxin = Several days Being so restless that it is hard to sit still: 1 = Several days Becoming easily annoyed or irritable: 1 = Several days Feeling afraid as if something awful might happen: 1 = Several days Total TERESITA-7 score (0-4 normal; 5-9 mild; 10-14 moderate; 15-21 severe): 7 Source: Developed by Drs. Nir Snyder, Estefanía Ortiz, Arjun Henriquez and colleagues, with an educational manuela from [employer]. Review of Systems Const Denies chills, Denies headache(s) and Denies weight loss ENT Denies headache(s) Card Denies chest pain, Denies syncope, Denies irregular heart rhythm and Denies dyspnea Resp Denies chest congestion, Denies cough and Denies dyspnea GI Denies abdominal pain, Denies change in stool character, Denies nausea and Denies vomiting Musc Denies deformity and Denies joint swelling Neuro Denies syncope and Denies headache(s) Physical exam (Primary Care) Vital Signs: Last Vital Signs Pulse 63 11/08/23 11:43 BP 112/68 11/08/23 11:43 Pulse Ox 98 11/08/23 11:43 Oxygen Delivery Method Room Air 11/08/23 11:43 BMI result Body Mass Index 29.1 Tobacco/Smoking Status: Tobacco use Status Tobacco use date assessed 11/08/23 11/08/23 11:48 Patient Tobacco Use Status Never used Tobacco 11/08/23 11:48 Tobacco use type Cigarette 11/08/23 11:48 e-Cigarette/Vaping Use Never Used 11/08/23 11:48 PHQ-9: PHQ-9 Score PHQ-9: Total score 0 11/08/23 11:49 Depression Screening Interpretation: Negative Thrive Assessment: Date of Thrive Assessment Date Thrive assessed 11/08/23 11/08/23 11:49 Const General: cooperative, comfortable, no acute distress and alert Neck Neck: Yes no lymphadenopathy Thyroid: Thyroid normal Resp Effort & Inspection: normal respiratory effort Auscultation: clear to auscultation bilaterally Percussion: percussion normal Cardio Jugular venous distension: no JVD Palpation: normal PMI Rate: regular rate Rhythm: regular rhythm Heart sounds: S1 normal heart sound present and S2 normal heart sound present GI Inspection: Yes normal to inspection Palpation (GI): No hepatosplenomegaly present Skin General skin exam: no rashes or lesions noted Extrem General: Yes no clubbing, cyanosis or edema Coding Level of Care Code Est Pt Level 3 (76612) Diagnoses Cognitive developmental delay F81.9 Assessment & Plan Assessment & Plan (1) Cognitive developmental delay: Code(s): F81.9 - Developmental disorder of scholastic skills, unspecified Category: Medical Plan: stable; same rx Medications: New acetaminophen (Tylenol) 650 mg (2 x 325 mg) PO Q6H PRN 90 tabs 3RF pain or temp over 100
== END 2023-11-08 12:01 | disposition home or self-care (01) ==
PROVIDERS: PCP Internal Medicine; Visit Provider Internal Medicine
DX: F81.9 Developmental disorder of scholastic skills, unspecified (principal)

== ENCOUNTER → 2023-11-08 11:41 | Outpatient (BNVA) | payer MEDICARE, MEDICAID, SELFPAY | PROVIDERS: PCP Internal Medicine; Visit Provider Internal Medicine | DX: F81.9 Developmental disorder of scholastic skills, unspecified (principal) | CPT/HCPCS: 96127; 99212 ==

== ENCOUNTER 2023-12-29 11:09 | Outpatient (AMB) | payer MEDICARE, MEDICAID, SELFPAY ==
[2023-12-29 11:12] VITALS: BP 108/74; PULSE 75; O2SAT 95; BMI 29.6
--- NOTE | 2023-12-29 11:12 | MHC.PC.OV ---
Vital Signs 12/29/23 11:12 Height 5 ft 2 in Weight 162 lb BMI 29.6 BP 108/74 Blood Pressure Location Lt brachial Position Sitting Pulse 75 Pulse Source Pulse Oximeter Pulse Oximetry (%) 95 Oxygen Delivery Method Room Air Intake Visit Reasons: Eye Problems Allergies benzoin [BENZOIN] Allergy (Severe, Verified 12/29/23 11:15) RASH lactose Allergy (Unknown, Verified 12/29/23 11:15) Unknown From UNASYN Allergy (Severe, Uncoded 12/29/23 11:15) RASH Tobacco use date assessed: 11/08/23 Dental Screening Dental Screen Date: 11/08/23 HPI Eye Problems HPI Details pain left eye 3 days ago which has since resolved; FB sensation PFSH Medical History Cognitive developmental delay Surgical History History of nasal surgery History of cranial surgery History of mandibular surgery Family History Father No problems noted. Mother No problems noted. Social History (Updated 11/08/22 @ 14:04 by Marco A Hylton) Housing: Other (longterm) Alcohol intake: never Patient Tobacco Use Status: Never used Tobacco Tobacco use type: Cigarette e-Cigarette/Vaping Use: Never Used Second Hand Smoke Exposure: No service: No Current occupational status: disabled Cognitive needs: Yes Hearing needs: No Vision needs: No Questionnaire Thrive Questionnaire Date Thrive assessed: 11/08/23 Are you currently unemployed and looking for a job?: No AUDIT C Alcohol Use Questionnaire (AUDIT-C) 1. How often do you have a drink containing alcohol?: Never 3. How often do you have six or more drinks on one occasion?: Never Total Score: 0 Score Reviewed/Action Taken: Yes TERESITA-7 AMB Questionnaire TERESITA-7 Date TERESITA - 7 assessed: 11/08/23 Source: Developed by Drs. Nir Snyder, Estefanía Ortiz, Arjun Henriquez and colleagues, with an educational manuela from [employer]. Review of Systems Const Denies chills, Denies headache(s) and Denies weight loss ENT Denies headache(s) Card Denies chest pain, Denies syncope, Denies irregular heart rhythm and Denies dyspnea Resp Denies chest congestion, Denies cough and Denies dyspnea GI Denies abdominal pain, Denies change in stool character, Denies nausea and Denies vomiting Musc Denies deformity and Denies joint swelling Neuro Denies syncope and Denies headache(s) Physical exam (Primary Care) Vital Signs: Last Vital Signs Pulse 75 12/29/23 11:12 BP 108/74 12/29/23 11:12 Pulse Ox 95 12/29/23 11:12 Oxygen Delivery Method Room Air 12/29/23 11:12 BMI result Body Mass Index 29.6 Tobacco/Smoking Status: Tobacco use Status Tobacco use date assessed 11/08/23 12/29/23 11:17 Patient Tobacco Use Status Never used Tobacco 12/29/23 11:17 Tobacco use type Cigarette 12/29/23 11:17 e-Cigarette/Vaping Use Never Used 12/29/23 11:17 Thrive Assessment: Date of Thrive Assessment Date Thrive assessed 11/08/23 12/29/23 11:17 Const General: cooperative, comfortable, no acute distress and alert HENMT Other: normal eye exam Neck Neck: Yes no lymphadenopathy Thyroid: Thyroid normal Resp Effort & Inspection: normal respiratory effort Auscultation: clear to auscultation bilaterally Percussion: percussion normal Cardio Jugular venous distension: no JVD Palpation: normal PMI Rate: regular rate Rhythm: regular rhythm Heart sounds: S1 normal heart sound present and S2 normal heart sound present GI Inspection: Yes normal to inspection Palpation (GI): No hepatosplenomegaly present Skin General skin exam: no rashes or lesions noted Extrem General: Yes no clubbing, cyanosis or edema Coding Level of Care Code Est Pt Level 3 (57171) Diagnoses Foreign body of left eye T15.92XA Assessment & Plan Assessment & Plan (1) Foreign body of left eye: Code(s): T15.92XA - Foreign body on external eye, part unspecified, left eye, initial encounter Plan: resolved
== END 2023-12-29 16:53 | disposition home or self-care (01) ==
PROVIDERS: PCP Internal Medicine; Visit Provider Internal Medicine
DX: T15.92XA Foreign body on external eye, part unspecified, left eye, initial encounter (principal)

== ENCOUNTER → 2023-12-29 11:09 | Outpatient (BNVA) | payer MEDICARE, MEDICAID, SELFPAY | PROVIDERS: PCP Internal Medicine; Visit Provider Internal Medicine | DX: T15.92XA Foreign body on external eye, part unspecified, left eye, initial encounter (principal) | CPT/HCPCS: 99212 ==

== ENCOUNTER 2024-01-26 13:49 | Outpatient (AMB) | payer MEDICARE, MEDICAID, SELFPAY ==
--- NOTE | 2024-01-26 13:52 | A.OFFPC_ITS ---
Vital Signs 01/26/24 13:53 Height 5 ft 2 in Weight 161 lb 6 oz BMI 29.5 BP 100/62 Blood Pressure Location Lt brachial Position Sitting Pulse 88 Pulse Source Pulse Oximeter Pulse Oximetry (%) 97 Oxygen Delivery Method Room Air Intake Visit Reasons: f/u strep throat Intake Note: Patient is here to follow up on Strep throat. Academic Registrar Required: No Conservation Biology Professor: Present Accompanied by: staff Allergies benzoin [BENZOIN] Allergy (Severe, Verified 01/26/24 13:52) RASH lactose Allergy (Unknown, Verified 01/26/24 13:52) Unknown From UNASYN Allergy (Severe, Uncoded 12/29/23 11:15) RASH Medication List - Last Reconciled 01/26/24 by Abdoul Richard MD acetaminophen (Tylenol) 650 mg (2 x 325 mg) PO Q6H PRN alclometasone 0.05% 0.05 appl topical DAILY PRN benzonatate 100 mg PO TID PRN ketoconazole 2% 0.05 appl topical 2XW oxcarbazepine 150 mg PO BID oxcarbazepine 300 mg PO BID quetiapine 100 mg PO DAILY trazodone 50 mg PO BEDTIME Tobacco use date assessed: 01/26/24 Dental Screening Dental Screen Date: 11/08/23 HPI f/u strep throat HPI Details cough and congestion for a week PFSH Medical History Cognitive developmental delay Surgical History History of nasal surgery History of cranial surgery History of mandibular surgery Family History Father No problems noted. Mother No problems noted. Social History Housing: Other (long-term) Alcohol intake: never Patient Tobacco Use Status: Never used Tobacco Tobacco use type: Cigarette e-Cigarette/Vaping Use: Never Used Second Hand Smoke Exposure: No service: No Current occupational status: disabled Cognitive needs: Yes Hearing needs: No Vision needs: No Questionnaire Thrive Questionnaire Date Thrive assessed: 11/08/23 Are you currently unemployed and looking for a job?: No TERESITA-7 AMB Questionnaire TERESITA-7 Date TERESITA - 7 assessed: 11/08/23 Source: Developed by Drs. Nir Snyder, Estefanía Ortiz, Arjun Henriquez and colleagues, with an educational manuela from [employer]. Review of Systems Const Denies chills, Denies headache(s) and Denies weight loss ENT Denies headache(s) Card Denies chest pain, Denies syncope, Denies irregular heart rhythm and Denies dyspnea Resp Denies chest congestion and Denies dyspnea GI Denies abdominal pain, Denies change in stool character, Denies nausea and Denies vomiting Musc Denies deformity and Denies joint swelling Neuro Denies syncope and Denies headache(s) Physical exam (Primary Care) Vital Signs: Last Vital Signs Pulse 88 01/26/24 13:53 BP 100/62 01/26/24 13:53 Pulse Ox 97 01/26/24 13:53 Oxygen Delivery Method Room Air 01/26/24 13:53 BMI result Body Mass Index 29.5 Tobacco/Smoking Status: Tobacco use Status Tobacco use date assessed 01/26/24 01/26/24 13:56 Patient Tobacco Use Status Never used Tobacco 01/26/24 13:56 Tobacco use type Cigarette 01/26/24 13:56 e-Cigarette/Vaping Use Never Used 01/26/24 13:56 Thrive Assessment: Date of Thrive Assessment Date Thrive assessed 11/08/23 01/26/24 13:56 Coding Level of Care Code Est Pt Level 3 (26932) Diagnoses Cough R05.9 Assessment & Plan Assessment & Plan (1) Cough: Code(s): R05.9 - Cough, unspecified Plan: rx sent Medications: New benzonatate 100 mg PO TID PRN 60 caps 0RF cough
[2024-01-26 13:53] VITALS: BP 100/62; PULSE 88; O2SAT 97; BMI 29.5
== END 2024-01-26 14:48 | disposition home or self-care (01) ==
PROVIDERS: PCP Internal Medicine; Visit Provider Internal Medicine
DX: R05.9 Cough, unspecified (principal)

== ENCOUNTER → 2024-01-26 13:49 | Outpatient (BNVA) | payer MEDICARE, MEDICAID, SELFPAY | PROVIDERS: PCP Internal Medicine; Visit Provider Internal Medicine | DX: R05.9 Cough, unspecified (principal) | CPT/HCPCS: 99212 ==

== ENCOUNTER 2024-03-14 09:55 | Outpatient (AMB) | payer MEDICARE, MEDICAID, SELFPAY ==
--- NOTE | 2024-03-14 09:58 | A.OFFVIS_ITS ---
Intake Vital Signs 03/14/24 09:59 Height 5 ft 2 in Weight 165 lb BMI 30.2 BP 104/58 L Blood Pressure Location Lt brachial Position Sitting Pulse 58 Pulse Source Pulse Oximeter Pulse Oximetry (%) 98 Oxygen Delivery Method Room Air Intake Visit Reasons: SWV [id number] Allergies benzoin [BENZOIN] Allergy (Severe, Verified 03/14/24 09:59) RASH lactose Allergy (Unknown, Verified 03/14/24 09:59) Unknown From UNASYN Allergy (Severe, Uncoded 03/14/24 09:59) RASH Medication List - Last Reconciled 03/15/24 by Abdoul Richard MD acetaminophen (Tylenol) 650 mg (2 x 325 mg) PO Q6H PRN alclometasone 0.05% 0.05 appl topical DAILY PRN ketoconazole 2% 0.05 appl topical 2XW oxcarbazepine 150 mg PO BID oxcarbazepine 300 mg PO BID quetiapine 100 mg PO DAILY trazodone 50 mg PO BEDTIME HPI V [id number] HPI Details cognitive delay; sees psych; legally congenital blindness [facility] Medical History Cognitive developmental delay Surgical History History of nasal surgery History of cranial surgery History of mandibular surgery Family History Father No problems noted. Mother No problems noted. Social History Housing: Other (long-term) Alcohol intake: never Patient Tobacco Use Status: Never used Tobacco Tobacco use type: Cigarette e-Cigarette/Vaping Use: Never Used Second Hand Smoke Exposure: No service: No Current occupational status: disabled Cognitive needs: Yes Hearing needs: No Vision needs: No Questionnaire Medicare Wellness Checkup What gender do you identify with?: male During the past 4 weeks, how much have you been bothered by emotional problems such as feeling anxious, depressed, irritable, sad or downhearted, and blue?: not at all During the past 4 weeks, has your physical & emotional health limited your social activities with family, friends, neighbors, or groups?: not at all During the past 4 weeks, how much bodily pain have you generally had?: no pain During the past 4 weeks, was someone available to help you if you needed & wanted help?: yes, as much as I wanted During the past 4 weeks, what was the hardest physical activity you could do for at least 2 minutes?: very light Can you get to places out of walking distance without help? (For eg., can you travel alone on buses, taxis or drive your car?): No Can you go shopping for groceries or clothes without someone's help?: No Can you prepare your own meals?: No Can you do your housework without help?: No Because of any health problems, do you need the help of another person with your personal care needs such as eating, bathing, dressing or getting around the house?: Yes Can you handle your own money without help?: No During the past 4 weeks, how would you rate your health in general?: very good During the past 4 weeks how have things been going for you?: pretty well Are you having difficulties driving your car?: not applicable, I don't use a car Do you always fasten your seat belt when you are in a car?: yes, usually During past 4 weeks, have you been bothered by the following: never: Falling or dizzy when standing up, Sexual problems?, Trouble eating well?, Teeth or denture problems?, Problems using the telephone? and Tiredness or fatigue? Have you fallen 2 or more times in the past year?: No Are you afraid of falling?: No Are you a smoker?: no During the past 4 weeks, how many drinks of wine, beer, or other alcoholic beverages did you have?: no alcohol at all Do you exercise for about 20 minutes 3 or more times a week?: yes, most of the time Have you been given information to help with the following?: yes: Hazards in your house that might hurt you? and yes: Keeping track of your medications? How often do you have trouble taking medicines the way you have been told to take them?: I always take medicine as prescribed How confident are you that you can control & manage most of your health problems?: very confident What is your race?: White Mini Mental State Exam (MMSE) Registration Name of 3 unrelated objects clearly and slowly, then ask patient to repeat all 3 of them. (1st repeat determines score. Make sure they can repeat all three): object 1, object 2 and object 3 Attention & Calculation (CHOOSE ONE) Spell WORLD backwards (DLROW): 0 letters Score Score: 3 Activity of Daily Living Bathing - sponge bath, tub bath or shower: receives help in bathing only one body part (such as back or leg) Dressing - getting clothes from closets & drawers, including inner/outer garments & fasteners.: gets clothes & gets completely dressed without help Toileting - going to the 'toilet room' for urine/bowel elimination & cleaning self/arranging clothes: goes to toilet room, cleans self, arranges clothes without help Transfer: moves in & out of bed and chair without help (may use support object) Continence: controls urination/bowel movements completely by self Feeding: feeds self without help Total Score: 0 Information obtained from: patient Using telephone: dependent Traveling: dependent Shopping: dependent Preparing meals: dependent Housework: dependent Taking medicine: dependent Managing money: dependent PHQ-9 Over the last 2 weeks, how often have you been bothered by any of the following problems? 1. Little interest or pleasure in doing things: not at all 2. Feeling down, depressed, or hopeless: not at all 3. Trouble falling or staying asleep, or sleeping too much: not at all 4. Feeling tired or having little energy: not at all 5. Poor appetite or overeating: not at all 6. Feeling bad about yourself - or that you are a failure or have let yourself or your family down: not at all 7. Trouble concentrating on things, such as reading the newspaper or watching television: not at all 8. Moving or speaking so slowly that other people could have noticed. Or the op posite - being so fidgety or restless that you have been moving around a lot more than usual: not at all 9. Thoughts that you would be better off or of hurting yourself in some way: not at all Total score: 0 Depression Screening Interpretation: Negative Depression Screening Done: Yes 81074 - PHQ-9 Billing: Yes Source: Developed by Drs. Nir Snyder, Estefanía B.W. Arjun Ortiz and colleagues, with an educational manuela from [employer]. Physical Exam Vital Signs: Last Vital Signs Pulse 58 03/14/24 09:59 BP 104/58 L 03/14/24 09:59 Pulse Ox 98 03/14/24 09:59 Oxygen Delivery Method Room Air 03/14/24 09:59 BMI result Body Mass Index 30.2 Assessment & Plan Assessment & Plan (1) Encounter for subsequent annual wellness visit (AWV) in Medicare patient: Code(s): Z00.00 - Encounter for general adult medical examination without abnormal findings Plan: whisper and rhomberg normal (2) Cognitive developmental delay: Code(s): F81.9 - Developmental disorder of scholastic skills, unspecified Plan: stable per psych Quality Reporting (2019) Depression/Bipolar (159/160/161/177) PHQ-9: Total score: 0 Coding Level of Care Code Medicare Subsequent (G0439) Diagnoses Encounter for subsequent annual wellness visit (AWV) in Medicare patient Z00.00 Cognitive developmental delay F81.9 Additional Codes PHQ-9 - 70298 - PHQ-9 Billing: Yes ([id number])
[2024-03-14 09:59] VITALS: BP 104/58; PULSE 58; O2SAT 98; BMI 30.2
--- OUTSIDE RECORDS SUMMARY | 2024-03-14 10:43 | XMS_ITS | Clinical Summary ---
Author Organization [facility] Address [address] [place] [address] Phone Care Team Providers Care Record Tabulating Clerk Name Role Phone Unavailable Primary Care Provider Unavailabl e Immunizations Name Administration Dates Next Due DTP 05/26/1993, 3,1991,10/18 DTaP 5 08/07/1996 H1N1 02/05/2009 HPV, Quadrivalent 11/21/2012,07/10/2012,05/04/19 13 Hep B, ped/adol 05/22/1992,1991,1991 Hib (HbOC) 02/20/1992,1991,1991 IPV 08/07/1996, 4,1991,10/18 Influenza Split 09/29/2010,11/06/1996 Influenza, injectable, trivalent 02/05/2009,10/10 Influenza, intranasal, trivalent 10/05/2011 MMR 08/07/1996,02/20/1992 Meningococcal Conj (Menactra) MCV4P 09/28/2006 Pneumococcal Polysaccharide 08/07/1996 Td (adult) (MBL), 2 Lf tetan us toxoid, PF, adsorbed 04/24/2003 Tdap 10/04/2007 Varicella 10/04/2007,09/03/1997 Family History Relation Name Status Comments Father Alive Father: Alive a nd well Mother Alive Mother: Alive a nd well Other Family history of Diabetes mellitus Social History Tobacco Use Types Packs/Day Years Used Date Smoking Tobacco: Never Comments:Never smoker Sex and Gender Information Value Date Recorded Sex Assigned at Not on file Legal Sex Male 4:50 PM EDT Gender Identity Not on file Sexual Orientation Not on file Last Filed Vital Signs Vital Sign Reading Time Taken Comments Blood Pressure 114/62 03/23/2012 12:00 AM EST Pulse 64 04/06/2010 12:00 AM EST Temperature 36.8 ??C (98.3 ??F) 05/27/2012 12:00 AM E DT Respiratory Rate - - Oxygen Saturation - - Inhaled Oxygen Concentration - - Weight 60.8 kg (134 lb) 05/27/2012 12:00 AM EDT Height 159.5 cm (5' 2.8 ) 03/23/2012 12:00 AM ES T Body Mass Index 23.89 03/23/2012 12:00 AM EST Plan of Treatment Health Maintenance Due Date Last Done Comments DTaP,Tdap,and Td Vaccines (7 - Td or Tdap) 10/03/2017 10/04/2007, 04/24/2003, 08/07/1996, Additional history exists Influenza Vaccines (#1) 2023 10/05/19 12, 09/29/2010, 02/05/2009, Additional history exists COVID-19 Vaccine ( season) 2023 HIB Vaccines Aged Out 02/20/1992, 06/1991, 1991 No longer eligible based on patient's age to complete this topic Hepatitis B Vaccines Completed 05/22/1992, 1991, 1991 IPV Vaccines Completed 08/07/1996, 05/08, 1991, Additional history exists MMR Vaccines Completed 08/07/1996, 02/20/1992 Pneumococcal Vaccine Aged Out 08/07/1996 No long er eligible based on patient's age to complete this topic Meningococcal Vaccine Aged Out 09/28/2006 No michaela deandre eligible based on patient's age to complete this topic Varicella Vaccines Completed 10/04/2007, 09/03/1997 HPV Vaccines Completed 11/21/2012, 04/2012, 05/03/2012 Hepatitis A Vaccines Aged Out No long er eligible based on patient's age to complete this topic Men B Vaccine Aged Out No longer elig ible based on patient's age to complete this topic
--- OUTSIDE RECORDS SUMMARY | 2024-03-14 10:43 | XMS_ITS | Encounter Summary ---
Author Organization [facility] Address [address] [place] [address] Phone Care Team Providers Care Brush Maker Name Role Phone Clifford Painting MD Primary Care Provider Encounter Details Date Type Department Care Team (Late st Contact Info) Description 10/06/2011 Documentation [facility] [place] [address] [place] [address] Family Medicine, Physician [address] [place], [place] [phone] Social History Tobacco Use Types Packs/Day Years Used Date Smoking Tobacco: Never Assessed Sex and Gender Information Value Date Recorded Sex Assigned at Not on file Legal Sex Male 4:50 PM EDT Gender Identity Not on file Sexual Orientation Not on file documented as of this encounter Plan of Treatment Not on file documented as of this encounter Visit Diagnoses Not on filedocumented in this encounter Care Teams Brush Maker Relationship Specialty Start Date End Date Clifford Painting MD 150 [facility] [place] [address] PCP - General 09/17/16 08/01/22 documented as of this encounter
--- OUTSIDE RECORDS SUMMARY | 2024-03-14 10:43 | XMS_ITS | Encounter Summary ---
Author Organization [facility] Address [address] [place] [address] Phone Care Team Providers Care Christian Ministries Professor Name Role Phone Clifford Painting MD Primary Care Provider [phone] Encounter Details Date Type Department Care Team (Late st Contact Info) Description 10/02/2009 Documentation [facility] [place] [address] [place] [address] Family Medicine, Physician [address] [place], [place] [phone] Social History Tobacco Use Types Packs/Day Years [...] on filedocumented in this encounter Care Teams Christian Ministries Professor Relationship Specialty Start Date End Date Clifford Painting MD 150 [facility] [place] [address] PCP - General 09/17/16 08/01/22 documented as of this encounter
--- OUTSIDE RECORDS SUMMARY | 2024-03-14 10:43 | XMS_ITS | Encounter Summary ---
Author Organization [facility] Address [address] [place] [address] Phone Care Team Providers Care Documentation Nurse Name Role Phone Clifford Painting MD Primary Care Provider [phone] Encounter Details Date Type Department Care Team (Late st Contact Info) Description 09/23/2016 Conversion Encounter [facility] [place] [address] [place] [address] Social History Tobacco Use Types Packs/Day Years [...] on filedocumented in this encounter Care Teams Documentation Nurse Relationship Specialty Start Date End Date Clifford Painting MD [address] [place] [address] PCP - General 09/17/16 08/01/22 documented as of this encounter
== END 2024-03-14 10:59 | disposition home or self-care (01) ==
PROVIDERS: PCP Internal Medicine; Visit Provider Internal Medicine
DX: F81.9 Developmental disorder of scholastic skills, unspecified (principal)

== ENCOUNTER → 2024-03-14 09:55 | Outpatient (BNVA) | payer MEDICARE, MEDICAID, SELFPAY | PROVIDERS: PCP Internal Medicine; Visit Provider Internal Medicine | DX: Z00.00 Encounter for general adult medical examination without abnormal findings (principal); F81.9 Developmental disorder of scholastic skills, unspecified | CPT/HCPCS: 96127; 99212 ==

== ENCOUNTER 2024-06-22 10:59 | Outpatient (AMB) | payer MEDICARE, MEDICAID, SELFPAY ==
--- NOTE | 2024-06-22 11:02 | MHC.PC.OV ---
Vital Signs 06/22/24 11:03 Height 5 ft 2 in Weight 156 lb BMI 28.5 BP 122/62 Blood Pressure Location Lt brachial Position Sitting Pulse 90 Pulse Source Pulse Oximeter Temp 97.3 F Temp Source Temporal Artery Scan Pulse Oximetry (%) 96 Oxygen Delivery Method Room Air Intake Visit Reasons: f/u Urgent Care MD delatorre/ hansel Richard Intake Note: Patient is here to follow-up after a visit the emergency department at Urgent Care MD on 06/19/24 Engineer Specialist Required: No Blood Bank Order Control Clerk: Present Accompanied by: STAFF Allergies benzoin [BENZOIN] Allergy (Severe, Verified 06/22/24 11:12) RASH lactose Allergy (Unknown, Verified 06/22/24 11:12) Unknown From UNASYN Allergy (Severe, Uncoded 06/22/24 11:12) RASH Medication List - Last Reconciled 06/22/24 by Ena Larios PA-C acetaminophen (Tylenol) 650 mg (2 x 325 mg) PO Q6H PRN alclometasone 0.05% 0.05 appl topical DAILY PRN ketoconazole 2% 0.05 appl topical 2XW oxcarbazepine 150 mg PO BID oxcarbazepine 300 mg PO BID quetiapine 100 mg PO DAILY trazodone 50 mg PO BEDTIME Tobacco use date assessed: 06/22/24 Dental Screening Dental Screen Date: 06/22/24 Did you have a dental visit in the last 12 months?: Yes Did you have a dental problem in the last 6 months where you did not have access to dental care?: No Was dental information given to patient?: Patient has dentist HPI f/u Urgent Care MD delatorre/ hansel Rihcard HPI Details 33-year-old male with past medical history of cognitive delay last seen 03/2024 coming in for transfer of care from Dr. Richard. Presenting with a facial rash diagnosed shingles and given Valtrex. The rash started on an unspecified Tuesday, crusted over, and is currently not causing any pain. There is a past report of a fall, although its details and impact remain unspecified. The patient denies experiencing any other rashes on the body. [facility] Medical History Cognitive developmental delay Surgical History History of nasal surgery History of cranial surgery History of mandibular surgery Family History Father No problems noted. Mother No problems noted. Social History Housing: Other (halfway) Alcohol intake: never Patient Tobacco Use Status: Never used Tobacco Tobacco use type: Cigarette e-Cigarette/Vaping Use: Never Used Second Hand Smoke Exposure: No service: No Current occupational status: disabled Cognitive needs: Yes Hearing needs: No Vision needs: No Questionnaire PHQ-9 Over the last 2 weeks, how often have you been bothered by any of the following problems? 1. Little interest or pleasure in doing things: not at all 2. Feeling down, depressed, or hopeless: not at all 3. Trouble falling or staying asleep, or sleeping too much: not at all 4. Feeling tired or having little energy: not at all 5. Poor appetite or overeating: not at all 6. Feeling bad about yourself - or that you are a failure or have let yourself or your family down: not at all 7. Trouble concentrating on things, such as reading the newspaper or watching television: not at all 8. Moving or speaking so slowly that other people could have noticed. Or the opposite - being so fidgety or restless that you have been moving around a lot more than usual: not at all 9. Thoughts that you would be better off or of hurting yourself in some way: not at all Total score: 0 Depression Screening Interpretation: Negative Depression Screening Done: Yes Source: Developed by Drs. Nir Snyder, Estefanía Ortiz, Arjun Henriquez and colleagues, with an educational manuela from [employer] Thrive Questionnaire Date Thrive assessed: 06/22/24 I am a: Patient What is your living situation today?: I have a steady place to live Within the past 12 months, did the food you bought not last and you didn't have the money to get more?: Never true Within the past 12 months, did you worry whether your food would run out before you got money to buy more?: Never true Do you have trouble paying for medicines?: No Do you have trouble getting transportation to medical appointments?: No Do you have trouble paying your heating and electricity bill?: No Do you have trouble taking care of your child, family member or friend?: No Do you have trouble with day-to-day activities such as bathing, preparing meals, shopping, managing finances, etc.?: No Are you currently unemployed and looking for a job?: No Are you interested in more education?: I choose not to answer this question Please select the resources that you would like help with: None Currently or been in a relationship where the following occur: No concerns reported THRIVE Score: 0 AUDIT C Alcohol Use Questionnaire (AUDIT-C) 1. How often do you have a drink containing alcohol?: Never Total Score: 0 TERESITA-7 AMB Questionnaire TERESITA-7 Date TERESITA - 7 assessed: 06/22/24 Feeling nervous, anxious, or on edge: 0 = Not at all Not being able to stop or control worryin = Not at all Worrying too much about different things: 0 = Not at all Trouble relaxin = Not at all Being so restless that it is hard to sit still: 0 = Not at all Becoming easily annoyed or irritable: 0 = Not at all Feeling afraid as if something awful might happen: 0 = Not at all Total TERESITA-7 score (0-4 normal; 5-9 mild; 10-14 moderate; 15-21 severe): 0 Source: Developed by Drs. Nir Snyder, Estefanía Ortiz, Arjun Henriquez and colleagues, with an educational manuela from [employer] TERESITA-7 Assessment Billing TERESITA-7 Assessment Tool: TERESITA-7 Assessment 10081 Review of Systems Const Denies body aches, Denies chills, Denies fever(s) and Denies headache(s) Eyes Reports no additional complaints ENT Denies dizziness and Denies headache(s) Card Denies chest pain, Denies edema, Denies irregular heart rhythm, Denies lightheadedness and Denies dyspnea Resp Denies dyspnea GI Denies diarrhea, Denies nausea and Denies vomiting Reports no additional complaints Musc Reports no additional complaints and Denies abnormal gait Skin/Breast Reports system reviewed and no additional complaints, except as documented Neuro Denies abnormal gait, Denies dizziness and Denies headache(s) Psych Reports no additional complaints Physical exam (Primary Care) Vital Signs: Last Vital Signs Temp 97.3 F 06/22/24 11:03 Pulse 90 06/22/24 11:03 BP 122/62 06/22/24 11:03 Pulse Ox 96 06/22/24 11:03 Oxygen Delivery Method Room Air 06/22/24 11:03 BMI result Body Mass Index 28.5 Tobacco/Smoking Status: Tobacco use Status Tobacco use date assessed 06/22/24 06/22/24 11:10 Patient Tobacco Use Status Never used Tobacco 06/22/24 11:10 Tobacco use type Cigarette 06/22/24 11:10 e-Cigarette/Vaping Use Never Used 06/22/24 11:10 PHQ-9: PHQ-9 Score PHQ-9: Total score 0 06/22/24 11:10 Depression Screening Interpretation: Negative Thrive Assessment: Date of Thrive Assessment Date Thrive assessed 06/22/24 06/22/24 11:10 Currently or been in a relationship where the following occur: No concerns reported Const General: cooperative, healthy appearing, comfortable and no acute distress Orientation/consciousness: patient oriented x3 HENMT Head: Yes normocephalic Ears: hearing grossly normal bilaterally General nose exam: Normal external nose present Face images: 1. crusted rash on erythematous base with no vesicular lesions or concern for infection Eyes General: appearance normal, both eyes and all related structures Conjunctivae: conjunctivae normal Neck Neck: Yes full ROM and Yes no lymphadenopathy Resp Effort & Inspection: normal respiratory effort Auscultation: clear to auscultation bilaterally, no crackles, no rales, no rhonchi and no wheezes Cardio Rate: regular rate Rhythm: regular rhythm Skin General skin exam: no rashes or lesions noted Neuro General: patient oriented x3 Gait exam (Neuro): Normal gait present Extrem General: Yes normal to inspection, Yes full ROM and No edema Psych Affect: normal affect Attitude: cooperative Insight: Good insight present (Psych) Judgement: Good judgement present (Psych) Coding Level of Care Code Est Pt Level 3 (43831) Diagnoses Facial rash R21 Additional Codes TERESITA-7 Assessment Billing - TERESITA-7 Assessment Tool: TERESITA-7 Assessment 50616 ([id number]) Assessment & Plan Assessment & Plan (1) Facial rash: Code(s): R21 - Rash and other nonspecific skin eruption Category: Medical Plan: The primary concern was the rash on the face, which does not currently present with pain. The patient is advised to monitor for any exacerbation signs such as redness, pain recurrence, or fever development. Observation is recommended to ensure complete resolution of symptoms. Plan This note was constructed using voice recognition software. While every effort has been made to ensure accuracy and warble saw operator, still areas may have been included sometimes these areas may affect the content or meeting of the given symptoms. Total time spent caring for the patient today was 20 minutes. This includes time spent before the visit reviewing the chart, time spent during the visit, and time spent after the visit and documentation. Patient was informed and verbally consented to the use of an ambient scribe for clinic note documentation during this visit.
[2024-06-22 11:03] VITALS: BP 122/62; PULSE 90; TEMP 36.3; O2SAT 96; BMI 28.5
--- OUTSIDE RECORDS SUMMARY | 2024-06-22 11:30 | XMS_ITS | Clinical Summary ---
Author Organization [facility] Address [address] [place] [phone] Phone Care Team Providers Care Rampman Name Role Phone Unavailable Primary Care Provider Unavailabl e Immunizations Immunization Administration Dates Next Due DTP 05/26/1993, 3,1991,10/18 [...]
--- OUTSIDE RECORDS SUMMARY | 2024-06-22 11:30 | XMS_ITS | Encounter Summary ---
Author Organization [facility] Address [address] [place] [address] Phone Care Team Providers Care Railway Yard Assistant Name Role Phone Clifford Painting MD Primary Care Provider [phone] Encounter Details Date Type Department Care Team (Late st Contact Info) Description 10/02/2009 Documentation [facility] [place] [address] [place] [address] Family Medicine, Physician [address] [place], [place] [phone] Social History Tobacco Use Types Packs/Day Years [...] on filedocumented in this encounter Care Teams Railway Yard Assistant Relationship Specialty Start Date End Date Clifford Painting MD 150 [facility] [place] [address] PCP - General 09/17/16 08/01/22 documented as of this encounter
--- OUTSIDE RECORDS SUMMARY | 2024-06-22 11:30 | XMS_ITS | Encounter Summary ---
Author Organization [facility] Address [address] [place] [address] Phone Care Team Providers Care Copper Roller Handler Printing Name Role Phone Clifford Painting MD Primary Care Provider [phone] Encounter Details Date Type Department Care Team (Late st Contact Info) Description 10/06/2011 Documentation [facility] [place] [address] [place] [address] Family Medicine, Physician [address] [place], [place] [phone] Social History Tobacco Use Types Packs/Day Years [...] on filedocumented in this encounter Care Teams Copper Roller Handler Printing Relationship Specialty Start Date End Date Clifford Painting MD 150 [facility] [place] [address] PCP - General 09/17/16 08/01/22 documented as of this encounter
--- OUTSIDE RECORDS SUMMARY | 2024-06-22 11:30 | XMS_ITS | Encounter Summary ---
Author Organization [facility] Address [address] [place] [address] Phone Care Team Providers Care Factorer Name Role Phone Clifford Painting MD Primary Care Provider [phone] Encounter Details Date Type Department Care Team (Late st Contact Info) Description 09/23/2016 Conversion Encounter [facility] [place] [address] [place] [address] Social History Tobacco Use Types Packs/Day Years [...] on filedocumented in this encounter Care Teams Factorer Relationship Specialty Start Date End Date Clifford Painting MD [address] [place] [address] PCP - General 09/17/16 08/01/22 documented as of this encounter
== END 2024-06-22 11:36 | disposition home or self-care (01) ==
LOC: HO.HMCH 11:00
PROVIDERS: PCP Internal Medicine
DX: R21 Rash and other nonspecific skin eruption (principal)

== ENCOUNTER → 2024-06-22 10:59 | Outpatient (BNVA) | payer MEDICARE, MEDICAID, SELFPAY | PROVIDERS: PCP Internal Medicine | DX: R21 Rash and other nonspecific skin eruption (principal) | CPT/HCPCS: 96127; 99212 ==

== ENCOUNTER 2024-09-03 13:51 | Outpatient (AMB) | payer MEDICARE, MEDICAID, SELFPAY ==
--- NOTE | 2024-09-03 13:56 | MHC.PC.OV ---
Vital Signs 09/03/24 13:57 09/03/24 14:35 Height 5 ft 3 in Weight 162 lb 8 oz BMI 28.8 BP 142/80 H 118/88 Blood Pressure Location Lt brachial Lt brachial Position Sitting BP not taken reason Medical Reason Pulse Source Pulse Oximeter Temp 98.4 F Temp Source Temporal Artery Scan Pulse Oximetry (%) 73 L 96 Oxygen Delivery Method Room Air Room Air Oxygen Flow Rate 97 Intake Visit Reasons: shingles symptoms, cold symptoms Starch Factory Laborer Required: No Accompanied by: Self / Same As Patient Allergies benzoin (BENZOIN) Allergy (Severe, Verified 09/03/24 14:19) RASH lactose Allergy (Unknown, Verified 09/03/24 14:19) Unknown From UNASYN Allergy (Severe, Uncoded 09/03/24 14:19) RASH Medication List - Last Reconciled 09/03/24 by Ena Larios PA-C acetaminophen (Tylenol) 650 mg (2 x 325 mg) PO Q6H PRN alclometasone 0.05% 0.05 appl topical DAILY PRN guaifenesin ER (Mucinex) 600 mg PO BID ketoconazole 2% 0.05 appl topical 2XW oxcarbazepine 150 mg PO BID oxcarbazepine 300 mg PO BID quetiapine 100 mg PO DAILY trazodone 50 mg PO BEDTIME Tobacco use date assessed: 09/03/24 Dental Screening Dental Screen Date: 06/22/24 Did you have a dental visit in the last 12 months?: Yes Did you have a dental problem in the last 6 months where you did not have access to dental care?: No Was dental information given to patient?: Patient has dentist HPI shingles symptoms, cold symptoms HPI Details 34-year-old male with past medical history of cognitive delay last seen 06/2024 coming in for acute problem. Presenting with recurrent shingles and associated respiratory symptoms. The patient experienced a recurrence of shingles shortly after the initial episode, with visible markings still present. Treatment with Valtrex was initiated, which has shown some improvement. Concurrent with the shingles recurrence, the patient developed symptoms including cough, excessive mucus production, runny nose, and congestion. The symptoms have persisted for approximately two and a half weeks, with some improvement noted in the cough and nasal discharge. That was recommended by urgent care new obtain blood work and possibly chest x-ray. [facility] Medical History Cognitive developmental delay Surgical History History of nasal surgery History of cranial surgery History of mandibular surgery Family History Father No problems noted. Mother No problems noted. Social History Housing: Other (correction) Alcohol intake: never Patient Tobacco Use Status: Never used Tobacco Tobacco use type: Cigarette e-Cigarette/Vaping Use: Never Used Second Hand Smoke Exposure: No service: No Current occupational status: disabled Cognitive needs: Yes Hearing needs: No Vision needs: No Questionnaire Thrive Questionnaire Date Thrive assessed: 09/03/24 I am a: Patient What is your living situation today?: I have a steady place to live Within the past 12 months, did the food you bought not last and you didn't have the money to get more?: Never true Within the past 12 months, did you worry whether your food would run out before you got money to buy more?: Never true Do you have trouble paying for medicines?: No Do you have trouble getting transportation to medical appointments?: No Do you have trouble paying your heating and electricity bill?: No Do you have trouble taking care of your child, family member or friend?: No Do you have trouble with day-to-day activities such as bathing, preparing meals, shopping, managing finances, etc.?: No Are you currently unemployed and looking for a job?: No Are you interested in more education?: I choose not to answer this question Please select the resources that you would like help with: None Currently or been in a relationship where the following occur: No concerns reported THRIVE Score: 0 TERESITA-7 AMB Questionnaire TERESITA-7 Date TERESITA - 7 assessed: 09/03/24 Source: Developed by Drs. Nir Snyder, Estefanía Ortiz, Arjun Henriquez and colleagues, with an educational manuela from [employer]. Review of Systems Const Denies body aches, Denies chills, Denies fever(s), Denies headache(s) and Denies poor appetite Eyes Reports no additional complaints ENT Denies dizziness and Denies headache(s) Card Denies chest pain, Denies edema, Denies lightheadedness and Denies dyspnea Resp Denies cough and Denies dyspnea GI Denies abdominal pain, Denies nausea and Denies vomiting Reports no additional complaints Musc Reports no additional complaints and Denies abnormal gait Skin/Breast Reports system reviewed and no additional complaints, except as documented Neuro Denies abnormal gait, Denies dizziness and Denies headache(s) Psych Reports no additional complaints Physical exam (Primary Care) Vital Signs: Last Vital Signs Temp 98.4 F 09/03/24 13:57 BP 118/88 09/03/24 14:35 Pulse Ox 96 09/03/24 14:35 Oxygen Delivery Method Room Air 09/03/24 14:35 Oxygen Flow Rate 97 09/03/24 13:57 BMI result Body Mass Index 28.8 Tobacco/Smoking Status: Tobacco use Status Tobacco use date assessed 09/03/24 09/03/24 13:58 Patient Tobacco Use Status Never used Tobacco 09/03/24 13:58 Tobacco use type Cigarette 09/03/24 13:58 e-Cigarette/Vaping Use Never Used 09/03/24 13:58 Thrive Assessment: Date of Thrive Assessment Date Thrive assessed 09/03/24 09/03/24 13:58 Currently or been in a relationship where the following occur: No concerns reported Const General: cooperative, healthy appearing, comfortable and no acute distress Orientation/consciousness: patient oriented x3 HENMT Head: Yes normocephalic Ears: hearing grossly normal bilaterally General nose exam: Normal external nose present Eyes General: appearance normal, both eyes and all related structures Conjunctivae: conjunctivae normal Neck Neck: Yes full ROM and Yes no lymphadenopathy Resp Effort & Inspection: normal respiratory effort Auscultation: clear to auscultation bilaterally, no crackles, no rales, no rhonchi and no wheezes Cardio Rate: regular rate Rhythm: regular rhythm Skin General skin exam: no rashes or lesions noted Neuro General: patient oriented x3 Gait exam (Neuro): Normal gait present Extrem General: Yes normal to inspection, Yes full ROM and No edema Psych Affect: normal affect Attitude: cooperative Insight: Good insight present (Psych) Judgement: Good judgement present (Psych) Coding Level of Care Code Est Pt Level 4 (24462) Diagnoses Cough R05.9 Facial rash R21 Atelectasis J98.11 Elevated hemidiaphragm J98.6 Assessment & Plan Assessment & Plan (1) Cough: Code(s): R05.9 - Cough, unspecified Category: Medical Plan: The plan includes obtaining a chest x-ray to rule out pneumonia due to persistent respiratory symptoms and crackles noted on examination. A full panel of blood work is also recommended to assess for any underlying abnormalities, including a cholesterol panel, which requires fasting. The patient will be provided with a liquid form of cough medicine to manage symptoms, with instructions to contact the office if the cough persists beyond 48 hours. Follow-up is scheduled to review the results of the blood work and chest x-ray, and to monitor blood pressure, which was slightly elevated during the visit. (2) Facial rash: Code(s): R21 - Rash and other nonspecific skin eruption Category: Medical Plan: Resolved at this time. Patient had called shinglmargie twice in 1 month. Plan to obtain blood work for further evaluation. (3) Atelectasis: Code(s): J98.11 - Atelectasis Category: Medical Plan: Patient's chest x-ray showing atelectasis an elevated hemidiaphragm with bronchovascular crowding. Plan to obtain CT with IV contrast for further evaluation. (4) Elevated hemidiaphragm: Code(s): J98.6 - Disorders of diaphragm Category: Medical Plan: See above Plan This note was constructed using voice recognition software. While every effort has been made to ensure accuracy and hemmer automatic, still areas may have been included sometimes these areas may affect the content or meeting of the given symptoms. Total time spent caring for the patient today was 20 minutes. This includes time spent before the visit reviewing the chart, time spent during the visit, and time spent after the visit and documentation. Patient was informed and verbally consented to the use of an ambient scribe for clinic note documentation during this visit. Orders: Orders XR chest 2V Today R05.9 - Cough, unspecified Complete Blood Count Auto Diff Today D72.819 - Decreased white blood cell count, unspecified, Z00.00 - Encounter for general adult medical examination without abnormal findings Comprehensive Met. Panel Today D72.819 - Decreased white blood cell count, unspecified, K59.1 - Functional diarrhea, R05.9 - Cough, unspecified TSH reflex Free T4 Today Z13.29 - Encounter for screening for other suspected endocrine disorder Vitamin B12 and Folate Today Z13.21 - Encounter for screening for nutritional disorder Vitamin D 25-OH Total Today R05.9 - Cough, unspecified, Z00.00 - Encounter for general adult medical examination without abnormal findings CT chest wo/w IV con Today J98.11 - Atelectasis, J98.6 - Disorders of diaphragm Free T4 (Free Thyroxine) Today R05.9 - Cough, unspecified, Z13.29 - Encounter for screening for other suspected endocrine disorder Lipid Panel Today Z13.220 - Encounter for screening for lipoid disorders Medications: New guaifenesin as needed for cough; call if cough lasts over 48 hours 200 mg (10 mL) PO Q4H PRN 118 mL 0RF cough R05.9 - Cough, unspecified
[2024-09-03 13:57] VITALS: BP 142/80; TEMP 36.9; O2SAT 73; BMI 28.8
[2024-09-03 14:35] VITALS: BP 118/88; O2SAT 96
--- OUTSIDE RECORDS SUMMARY | 2024-09-03 14:35 | XMS_ITS | Clinical Summary ---
Author Organization [facility] Address [address] [address] Phone Care Team Providers Care Cloth Shearer Name Role Phone Pat Ellison MD Primary Care Provider + Allergies Active Allergy Reactions Criticality Noted Date Comments Benzoin Unknown 11/21/2012 Penicillins Unknown 11/21/2012 Medications traZODone (DESYREL) 50 MG tablet 02/25/2023 Active SEROQUEL 100 mg tablet 10/09/2018 Active OXcarbazepine (TRILEPTAL) 150 MG tablet 06/07/2020 Active OXcarbazepine (TRILEPTAL) 300 MG tablet 02/25/2023 Active Social History Tobacco Use Types Packs/Day Years Used Date Smoking Tobacco: Never Assessed Education Answer Date Recorded Are you interested in more education? Not on wade e 10/15/2022 Are you concerned about learning? Not on file 10/15/2022 No 10/15/2022 No 10/15/2022 Digital Access Answer Date Recorded No 10/15/2022 No 10/15/2022 Reliable internet access at home? Not on file 10/15/2022 Device with a working camera? Not on file Sex and Gender Information Value Date Recorded Sex Assigned at Not on file Legal Sex Male 6:05 PM EST Gender Identity Not on file Sexual Orientation Not on file Last Filed Vital Signs Vital Sign Reading Time Taken Comments Blood Pressure 110/72 03/07/2023 4:40 PM EST Pulse 90 03/07/2023 4:40 PM EST Temperature 37.1 C (98.8 F) 03/07/2023 4:40 PM EST Respiratory Rate 20 03/07/2023 4:40 PM EST Oxygen Saturation 95% 03/07/2023 4:40 PM EST Inhaled Oxygen Concentration - - Weight - - Height 162.6 cm (5' 4 ) 03/07/2023 4:40 PM EST Body Mass Index - - Plan of Treatment Health Maintenance Due Date Last Done Comments DEPRESSION SCREENING 2003 SMOKING Hx and SMOKELESS TOBACCO SCREENING 08/18/2004 HEPATITIS C SCREENING 08/18/2009 HIV ONE-TIME SCREENING (18-65 YEARS) 08/18/2009 Adult Td,Tdap Booster 10/03/2017 10/04/2007 COVID-19 VACCINE ( season) 2023 10/02/2021, 02/02/2021, 03/14/2020, Additional history exists HEPATITIS A VACCINES Aged Out No long er eligible based on patient's age to complete this topic HIB VACCINES Aged Out No longer eligi ble based on patient's age to complete this topic MENINGOCOCCAL VACCINES (ACWY) Aged Out No longer eligible based on patient's age to complete this topic MENINGOCOCCAL VACCINES (B) Aged Out N o longer eligible based on patient's age to complete this topic PNEUMOCOCCAL VACCINES (0-49 years) Aged Out No longer eligible based on patient's age to complete this topic Medical Devices Not on file Insurance [facility] MEDICARE PART A & B [place] B MEDICARE PART A & B Care Teams Cloth Shearer Relationship Specialty Start Date End Date Pat Ellison MD [address] [place] [address] PCP - General 06/13/14 Additional Source Comments The information contained in this document represents components of the legal health record. It is not the complete legal health record.[facility]
--- OUTSIDE RECORDS SUMMARY | 2024-09-03 14:35 | XMS_ITS | Encounter Summary ---
Author Organization [facility] Address [address] [place] [id number] Phone Care Team Providers Care Workers' Compensation Hearings Officer Name Role Phone Clifford Painting MD Primary Care Provider [phone] Encounter Details Date Type Department Care Team (Late st Contact Info) Description 10/02/2009 Documentation [facility] [place] [address] [place] [address] Family Medicine, Physician [address] [place], [place] [id number] Social History Tobacco Use Types Packs/Day Years [...] on filedocumented in this encounter Care Teams Workers' Compensation Hearings Officer Relationship Specialty Start Date End Date Clifford Painting MD [address] [facility] [place] [address] PCP - General 09/17/16 08/01/22 documented as of this encounter
== END 2024-09-03 14:57 | disposition home or self-care (01) ==
LOC: HO.HMCH 13:52
PROVIDERS: PCP Internal Medicine
DX: R05.9 Cough, unspecified (principal); R21 Rash and other nonspecific skin eruption; J98.11 Atelectasis; J98.6 Disorders of diaphragm

== ENCOUNTER 2024-09-03 13:51 | Outpatient (REF) | payer MEDICARE, MEDICAID, SELFPAY ==
--- NOTE | ~2024-09-03 | XR_ITS ---
EXAMINATION: XR CHEST CLINICAL INFORMATION: R05.9 - Cough, unspecified COMPARISON: None available. TECHNIQUE: 2 views of the chest were obtained. FINDINGS: Marked elevation of left hemidiaphragm, resulting in mild rightward mediastinal shift. There is volume loss in the left lung. Mediastinal and hilar contours otherwise normal. Lungs demonstrate bronchovascular crowding in the left base secondary to diaphragmatic elevation. The right lung is clear. There is no pneumothorax or pleural effusion. There is no focal osseous or soft tissue abnormality. XR/XR chest 2V IMPRESSION: 1. Markedly elevated left hemidiaphragm with atelectatic changes and bronchovascular crowding in the aerated left lung base. Pneumonia would be difficult to exclude in this setting. 2. The right lung is clear. Electronically signed by: Sabas Hernandez MD 09/03/2024 03:31 PM EDT
== END 2024-09-03 13:52 | disposition home or self-care (01) ==
LOC: HO.XRAY 13:51
DX: R05.9 Cough, unspecified (principal); R21 Rash and other nonspecific skin eruption; J98.11 Atelectasis; J98.6 Disorders of diaphragm
CPT/HCPCS: 71046; 99212

== ENCOUNTER → 2024-09-03 15:06 | Outpatient (BNV) | payer MEDICARE, MEDICAID, SELFPAY | PROVIDERS: Visit Provider Radiology Diagnostic Radiology | DX: J98.11 Atelectasis (principal) | CPT/HCPCS: 71046 ==

== ENCOUNTER 2024-09-04 06:40 | Outpatient (REF) | payer MEDICARE, MEDICAID, SELFPAY ==
--- OUTSIDE RECORDS SUMMARY | 2024-09-04 06:43 | XMS_ITS | Clinical Summary ---
Author Organization [facility] Address [address] [address] Phone Care Team Providers Care Athletic Equipment Manager Name Role Phone Pat Ellison MD Primary [...] topic Medical Devices Not on file Insurance [employer] MEDICARE PART A & B [place] MED[place] PART [place] & B MEDICARE PART A & B Care Teams Athletic Equipment Manager Relationship Specialty Start Date End Date Pat Ellison MD [address] [place] [address] PCP - General 06/13/14 Additional Source Comments The information contained in this document represents components of the legal health record. It is not the complete legal health record.[facility]
[2024-09-04 06:51] LABS: MANUAL DIFF FLAG NO
[2024-09-04 07:21] LABS: Hematocrit 42.2 % (42.0-52.0); Hemoglobin 15.1 g/dl (14.0-18.0); Imm Gran Abs Auto 0.03 X10*3/uL (0.00-0.03); Imm Gran Pct Auto 0.7 % (0.0-0.4); Lymphocytes Absolute Auto 1.3 X10*3/uL (1.2-4.9); Mean Corpuscular HGB Conc 35.8 g/dl (31.0-36.0); Mean Corpuscular Hemoglobin 31.8 pg (27.0-33.0); Mean Corpuscular Volume 88.8 fL (80.0-98.0); NRBC Abs Auto 0.000 X10*3/uL (0.0-0.012); NRBC Pct Auto 0.0 /100WBC (0.0-0.2); Platelet Count 296 X10*3/uL (160-400); Red Blood Count 4.75 X10*6/uL (4.60-5.80); White Blood Count 4.3 X10*3/uL (4.8-10.8)
[2024-09-04 07:59] LABS: Alanine Aminotransferase 25 U/L (0-40); Albumin Level 4.7 g/dL (3.5-5.0); Alkaline Phosphatase 70 U/L (39-117); Anion Gap 11 (12-20); Aspartate Amino Transferase 23 U/L (5-37); Blood Urea Nitrogen 10 mg/dL (9-16); Calcium 8.6 mg/dL (8.4-10.2); Carbon Dioxide 26 mmol/L (22-29); Chloride 97 mmol/L (96-108); Cholesterol 153 mg/dL (<200); Estimated Glomerular Filt Rate > 60; HDL Cholesterol 44 mg/dL (>40); Potassium 4.1 mmol/L (3.3-5.1); Sodium 130 mmol/L (135-145); Total Protein 6.7 g/dL (6.5-8.0); Triglycerides 76 mg/dL (<150)
[2024-09-04 08:10] LABS: Free T4 (Free Thyroxine) 0.89 ng/dL (0.71-1.85)
[2024-09-04 08:20] LABS: Folate 7.0 ng/mL (> or = 4.0); Vitamin B12 697 pg/mL (200-900)
== END 2024-09-04 06:41 | disposition home or self-care (01) ==
LOC: HO.LAB 06:40
DX: Z00.00 Encounter for general adult medical examination without abnormal findings (principal); Z13.29 Encounter for screening for other suspected endocrine disorder; Z13.21 Encounter for screening for nutritional disorder; Z13.220 Encounter for screening for lipoid disorders; D72.819 Decreased white blood cell count, unspecified; R05.9 Cough, unspecified; K59.1 Functional diarrhea
CPT/HCPCS: 36415; 80053; 80061; 82306; 82607; 82746; 84439; 84443; 85025

== ENCOUNTER 2024-09-25 08:10 | Outpatient (REF) | payer MEDICARE, MEDICAID, SELFPAY ==
--- NOTE | ~2024-09-25 | CT_ITS ---
EXAMINATION: CT CHEST WITH IV CONTRAST INDICATION: J98.6 - Disorders of diaphragm COMPARISON: Correlation is made with PA and lateral views of the chest dated 09/03/2024. TECHNIQUE: Helical CT scan of the chest was performed following administration of intravenous contrast. Coronal and sagittal reformatted images were generated and reviewed. This CT exam was performed with one or more of the following dose reduction techniques: automated exposure control, adjustment of the mA and/or kV according to patient size, use of iterative reconstruction technique. DLP: 153 mGy-cm CHEST: THYROID: The thyroid is unremarkable. LUNGS: There is eventration of the diaphragms with resultant low lung volumes.. There is subsegmental atelectasis at the left lung base. The lungs are otherwise clear. MEDIASTINUM: There is no mediastinal lymphadenopathy. ASHISH: There is no hilar lymphadenopathy. CARDIOVASCULATURE: The heart is normal in size. There is no pericardial effusion. The thoracic aorta is normal in caliber. DEGREE OF CORONARY CALCIFICATION: none PLEURA: There is no pleural effusion. No pneumothorax. MAIN AIRWAYS: The mainstem bronchi and proximal branches are patent. AXILLA: There is no axillary lymphadenopathy. BONES AND SOFT TISSUES: Unremarkable UPPER ABDOMEN: The visualized portions of the liver, spleen, and adrenals are unremarkable. CT/CT chest w IV con IMPRESSION: Eventration of the diaphragms with resultant low lung volumes and subsegmental atelectasis at the left lung base. Electronically signed by: Nir Villarreal MD 09/25/2024 10:04 AM EDT
--- OUTSIDE RECORDS SUMMARY | 2024-09-25 08:41 | XMS_ITS | Encounter Summary ---
Author Organization [facility] Address [address] [place] [address] Phone Care Team Providers Care Blue Line Hanger Name Role Phone Clifford Painting MD Primary Care Provider [phone] Encounter Details Date Type Department Care Team (Late st Contact Info) Description 10/02/2009 Documentation [facility] [place] Family Medicine [address] [place] [address] Family Medicine, Physician [address] [place], [place] [phone] Social History Tobacco Use Types Packs/Day Years [...] on filedocumented in this encounter Care Teams Blue Line Hanger Relationship Specialty Start Date End Date Clifford Painting MD [address] [facility] [place] [address] PCP - General 09/17/16 08/01/22 documented as of this encounter
--- OUTSIDE RECORDS SUMMARY | 2024-09-25 08:41 | XMS_ITS | Clinical Summary ---
Author Organization [facility] Address [address] [place] [address] Phone Care Team Providers Care Framing Mill Supervisor Name Role Phone Clifford Painting MD Primary Care Provider [phone] Clifford Painting MD Unavailable Clifford Painting MD Unavailable Social History Tobacco Use Types Packs/Day Years Used Date Smoking Tobacco: Never Assessed Sex and Gender Information Value Date Recorded Sex Assigned at Not on file Legal Sex Male 1:51 PM EDT Gender Identity Not on file Sexual Orientation Not on file Plan of Treatment Health Maintenance Due Date Last Done Comments HIV Screening 1991 MMR Vaccines (1 of 1 - Stand erik series) 08/18/1992 DTaP/Tdap/Td Vaccines (1 - Tdap) 08/18/1998 Varicella Vaccines (1 of 2 - 13+ 2-dose series) 08/18/2004 Hepatitis C Screening 08/18/2009 Hepatitis B Vaccines (1 of 3 - 19+ 3-dose series) 08/18/2010 HPV Vaccines (1 - 3-dose SCD M series) 08/18/2018 COVID-19 Vaccine (2023-2 5 season) 2023 Influenza Vaccine (#1) 2024 HIB Vaccines Aged Out No longer eligi ble based on patient's age to complete this topic Hepatitis A Vaccines Aged Out No long er eligible based on patient's age to complete this topic IPV Vaccines Aged Out No longer eligi ble based on patient's age to complete this topic Meningococcal B Vaccine Aged Out No l onger eligible based on patient's age to complete this topic Meningococcal Vaccine Aged Out No michaela deandre eligible based on patient's age to complete this topic Pneumococcal Vaccine: Pediat rics (0 to 5 Years) and At-Risk Patients (6 to 49 Years) Aged Out No longer eligible b ased on patient's age to complete this topic Rotavirus Vaccines Aged Out No longer eligible based on patient's age to complete this topic Care Teams Framing Mill Supervisor Relationship Specialty Start Date End Date Clifford Painting MD [address] [facility] [place] [address] PCP - General 05/29/10 Clifford Painting MD [address] [facility] [place] [address] PCP - Clinical PCP 05/29/10 Clifford Painting MD [address] [facility] [place] [address] PCP - Insurance PCP 03/15/05
--- OUTSIDE RECORDS SUMMARY | 2024-09-25 08:41 | XMS_ITS | Clinical Summary ---
Author Organization [facility] Address [address] [address] Phone Care Team Providers Care Airplane Captain Name Role Phone Pat Ellison MD Primary [...] topic Medical Devices Not on file Insurance [employer] MEDICARE PART A & [place] & [place] MED[place] PART [place] & B MEDICARE PART A & B Care Teams Airplane Captain Relationship Specialty Start Date End Date Pat Ellison MD [address] [place] [address] PCP - General 06/13/14 Additional Source Comments The information contained in this document represents components of the legal health record. It is not the complete legal health record.[facility]
[2024-09-25] MEDS: iohexoL 350 MG/ML 100 ML INFUS..BTL IV (09:55)
== END 2024-09-25 08:11 | disposition home or self-care (01) ==
LOC: HO.CT 08:10
DX: J98.11 Atelectasis (principal); J98.6 Disorders of diaphragm
CPT/HCPCS: 71260; Q9967

== ENCOUNTER → 2024-09-25 08:12 | Outpatient (BNV) | payer MEDICARE, MEDICAID, SELFPAY | PROVIDERS: Visit Provider Radiology Diagnostic Radiology | DX: J98.11 Atelectasis (principal) | CPT/HCPCS: 71260 ==

== ENCOUNTER 2024-09-29 08:01 | Outpatient (REF) | payer MEDICARE, MEDICAID, SELFPAY ==
--- OUTSIDE RECORDS SUMMARY | 2024-09-29 08:03 | XMS_ITS | Clinical Summary ---
Author Organization [facility] Address [address] [address] Phone Care Team Providers Care Furnace Installer Helper Name Role Phone Pat Ellison MD Primary [...] topic Medical Devices Not on file Insurance [employer] MEDICARE PART A & B [place]IC[place] PART [place] & [place] MED[place] PART A & B MEDICARE PART A & B Care Teams Furnace Installer Helper Relationship Specialty Start Date End Date Pat Ellison MD [address] [place] [address] PCP - General 06/13/14 Additional Source Comments The information contained in this document represents components of the legal health record. It is not the complete legal health record.[facility]
--- OUTSIDE RECORDS SUMMARY | 2024-09-29 08:03 | XMS_ITS | Encounter Summary ---
Author Organization [facility] Address [address] [place] [address] Phone Care Team Providers Care Metal Numerical Control Programmer Name Role Phone Clifford Painting MD Primary Care Provider [phone] Encounter Details Date Type Department Care Team (Late st Contact Info) Description 10/02/2009 Documentation [facility] [place] Family Medicine [address] [place] [address] Family Medicine, Physician [address] [place], [place] [phone] Social History Tobacco Use Types Packs/Day Years [...] on filedocumented in this encounter Care Teams Metal Numerical Control Programmer Relationship Specialty Start Date End Date Clifford Painting MD [address] [facility] [place] [address] PCP - General 09/17/16 08/01/22 documented as of this encounter
[2024-09-29 11:16] LABS: Anion Gap 12 (12-20); Blood Urea Nitrogen 14 mg/dL (9-16); Calcium 8.8 mg/dL (8.4-10.2); Carbon Dioxide 25 mmol/L (22-29); Chloride 105 mmol/L (96-108); Estimated Glomerular Filt Rate > 60; Potassium 4.6 mmol/L (3.3-5.1); Sodium 137 mmol/L (135-145)
== END 2024-09-29 08:02 | disposition home or self-care (01) ==
LOC: HO.LAB 08:01
DX: E87.1 Hypo-osmolality and hyponatremia (principal)
CPT/HCPCS: 36415; 80048

== ENCOUNTER 2024-10-16 10:53 | Outpatient (AMB) | payer MEDICARE, MEDICAID, SELFPAY ==
--- NOTE | 2024-10-16 11:00 | A.OFFPC_ITS ---
Vital Signs 10/16/24 11:04 Height 5 ft 3 in Weight 164 lb BMI 29.0 BP 108/62 Blood Pressure Location Lt brachial Position Sitting Pulse 66 Pulse Source Pulse Oximeter Pulse Oximetry (%) 96 Oxygen Delivery Method Room Air Intake Visit Reasons: MRI follow up Tenon Machine Operator Required: No Accompanied by: Self / Same As Patient Allergies benzoin (BENZOIN) Allergy (Severe, Verified 10/16/24 11:06) RASH lactose Allergy (Unknown, Verified 10/16/24 11:06) Unknown From UNASYN Allergy (Severe, Uncoded 09/03/24 14:19) RASH Medication List - Last Reconciled 10/16/24 by Ena Larios PA-C acetaminophen (Tylenol) 650 mg (2 x 325 mg) PO Q6H PRN alclometasone 0.05% 0.05 appl topical DAILY PRN guaifenesin 200 mg (10 mL) PO Q4H PRN guaifenesin ER (Mucinex) 600 mg PO BID ketoconazole 2% 0.05 appl topical 2XW oxcarbazepine 150 mg PO BID oxcarbazepine 300 mg PO BID quetiapine 100 mg PO DAILY trazodone 50 mg PO BEDTIME Tobacco use date assessed: 10/16/24 Dental Screening Dental Screen Date: 10/16/24 Did you have a dental visit in the last 12 months?: Yes Did you have a dental problem in the last 6 months where you did not have access to dental care?: No Was dental information given to patient?: Patient has dentist HPI MRI follow up HPI Details 34-year-old male with past medical histo ry of cognitive delay last seen 08/2024 coming in for follow up on recent imaging. Patient had CT scan 09/25/2024 which revealed eventration of the diaphragms with low lung volumes and subsegmental atelectasis at the left lung base. Given the findings patient was referred to pulmonology and has a appointment in December. Presenting with respiratory symptoms and elevated diaphragm. Imaging revealed an elevated diaphragm without any compressive mass or enlarged organ. Diagnosed with sleep apnea during childhood through sleep studies. 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 History of pneumonia with two hospitalizations during childhood. [facility] Medical History Cognitive developmental delay Surgical History History of nasal surgery History of cranial surgery History of mandibular surgery Family History Father No problems noted. Mother No problems noted. Social History Housing: Other (alf) Alcohol intake: never Patient Tobacco Use Status: Never used Tobacco Tobacco use type: Cigarette e-Cigarette/Vaping Use: Never Used Second Hand Smoke Exposure: No service: No Current occupational status: disabled Cognitive needs: Yes Hearing needs: No Vision needs: No Questionnaire PHQ-9 Over the last 2 weeks, how often have you been bothered by any of the following problems? 1. Little interest or pleasure in doing things: not at all 2. Feeling down, depressed, or hopeless: not at all 3. Trouble falling or staying asleep, or sleeping too much: not at all 4. Feeling tired or having little energy: not at all 5. Poor appetite or overeating: not at all 6. Feeling bad about yourself - or that you are a failure or have let yourself or your family down: not at all 7. Trouble concentrating on things, such as reading the newspaper or watching television: not at all 8. Moving or speaking so slowly that other people could have noticed. Or the opposite - being so fidgety or restless that you have been moving around a lot more than usual: not at all 9. Thoughts that you would be better off or of hurting yourself in some way: not at all Total score: 0 Depression Screening Interpretation: Negative Depression Screening Done: Yes 91047 - PHQ-9 Billing: Yes Source: Developed by Drs. Nir Snyder, Estefanía Ortiz, Arjun Henriquez and colleagues, with an educational manuela from [employer] (now [employer]). Thrive Questionnaire Date Thrive assessed: 10/16/24 I am a: Patient What is your living situation today?: I have a steady place to live Within the past 12 months, did the food you bought not last and you didn't have the money to get more?: Never true Within the past 12 months, did you worry whether your food would run out before you got money to buy more?: Never true Do you have trouble paying for medicines?: No Do you have trouble getting transportation to medical appointments?: No Do you have trouble paying your heating and electricity bill?: No Do you have trouble taking care of your child, family member or friend?: No Do you have trouble with day-to-day activities such as bathing, preparing meals, shopping, managing finances, etc.?: No Are you currently unemployed and looking for a job?: No Are you interested in more education?: I choose not to answer this question Please select the resources that you would like help with: None Currently or been in a relationship where the following occur: No concerns reported THRIVE Score: 0 AUDIT C Alcohol Use Questionnaire (AUDIT-C) 1. How often do you have a drink containing alcohol?: Never Total Score: 0 TERESITA-7 AMB Questionnaire TERESITA-7 Date TERESITA - 7 assessed: 10/16/24 Feeling nervous, anxious, or on edge: 0 = Not at all Not being able to stop or control worryin = Not at all Worrying too much about different things: 0 = Not at all Trouble relaxin = Not at all Being so restless that it is hard to sit still: 0 = Not at all Becoming easily annoyed or irritable: 0 = Not at all Feeling afraid as if something awful might happen: 0 = Not at all Total TERESITA-7 score (0-4 normal; 5-9 mild; 10-14 moderate; 15-21 severe): 0 Source: Developed by Drs. Nir Snyder, Estefanía Ortiz, Arjun Henriquez and colleagues, with an educational manuela from [employer] (now [employer]). TERESITA-7 Assessment Billing TERESITA-7 Assessment Tool: TERESITA-7 Assessment 31801 Review of Systems Const Denies body aches, Denies chills, Denies fever(s), Denies headache(s) and Denies poor appetite Eyes Reports no additional complaints ENT Denies dizziness and Denies headache(s) Card Denies chest pain, Denies lightheadedness and Denies dyspnea Resp Denies cough and Denies dyspnea GI Denies abdominal pain, Denies nausea and Denies vomiting Reports no additional complaints Musc Reports no additional complaints and Denies abnormal gait Skin/Breast Reports system reviewed and no additional complaints, except as documented Neuro Denies abnormal gait, Denies dizziness and Denies headache(s) Psych Reports no additional complaints Physical exam (Primary Care) Vital Signs: Last Vital Signs Pulse 66 10/16/24 11:04 BP 108/62 10/16/24 11:04 Pulse Ox 96 10/16/24 11:04 Oxygen Delivery Method Room Air 10/16/24 11:04 BMI result Body Mass Index 29.0 Tobacco/Smoking Status: Tobacco use Status Tobacco use date assessed 10/16/24 10/16/24 11:10 Patient Tobacco Use Status Never used Tobacco 10/16/24 11:10 Tobacco use type Cigarette 10/16/24 11:10 e-Cigarette/Vaping Use Never Used 10/16/24 11:10 PHQ-9: PHQ-9 Score PHQ-9: Total score 0 10/16/24 11:22 Depression Screening Interpretation: Negative Thrive Assessment: Date of Thrive Assessment Date Thrive assessed 10/16/24 10/16/24 11:10 Currently or been in a relationship where the following occur: No concerns reported Const General: cooperative, healthy appearing, comfortable and no acute distress HENMT Head: Yes normocephalic Ears: hearing grossly normal bilaterally General nose exam: Normal external nose present Eyes Conjunctivae: conjunctivae normal Neck Neck: Yes full ROM and Yes no lymphadenopathy Resp Other: Unable to appreciate lung sounds in the left lower lobe likely due to patient unable to follow directions and take deep breath in. All other lung alcazar cl ear to auscultation Effort & Inspection: normal respiratory effort Cardio Rate: regular rate Rhythm: regular rhythm Skin General skin exam: no rashes or lesions noted Neuro Gait exam (Neuro): Normal gait present Psych Affect: normal affect Attitude: cooperative Coding Level of Care Code Est Pt Level 3 (49751) Diagnoses Hyponatremia E87.1 Elevated hemidiaphragm J98.6 Atelectasis J98.11 Cough R05.9 Additional Codes TERESITA-7 Assessment Billing - TERESITA-7 Assessment Tool: TERESITA-7 Assessment 63227 ([id number]) PHQ-9 - 09743 - PHQ-9 Billing: Yes ([id number]) Assessment & Plan Assessment & Plan (1) Hyponatremia: Code(s): E87.1 - Hypo-osmolality and hyponatremia Category: Medical Plan: Resolved continue to monitor (2) Elevated hemidiaphragm: Code(s): J98.6 - Disorders of diaphragm Category: Medical Plan: The patient is referred to pulmonology for further evaluation of the elevated diaphragm. A follow-up appointment with pulmonology is scheduled for December 17 to determine the next steps in management. (3) Atelectasis: Code(s): J98.11 - Atelectasis Category: Medical Plan: The low lung volumes are attributed to the elevated diaphragm, and further evaluation by pulmonology is planned to assess potential interventions. (4) Cough: Code(s): R05.9 - Cough, unspecified Category: Medical Plan: Patient's rf design engineer tells us today he began with a cough yesterday and believes he is short of breath. On exam I am unable to appreciate lung sounds in the left side as patient is unable to take a deep breath in or follow instructions clearly. Given history plan to obtain chest x-ray for further evaluation. Viral swab also ordered. Plan This note was constructed using voice recognition software. While every effort has been made to ensure accuracy and office support specialist, still areas may have been included sometimes these areas may affect the content or meeting of the given symptoms. Total time spent caring for the patient today was 20 minutes. This includes time spent before the visit reviewing the chart, time spent during the visit, and time spent after the visit and documentation. Patient was informed and verbally consented to the use of an ambient scribe for clinic note documentation during this visit. Orders: Orders XR chest 2V 10/16/24 R06.02 - Shortness of breath SARS-CoV2/FLU/RSV 10/16/24 R09.89 - Other specified symptoms and signs involving the circulatory and respiratory systems
[2024-10-16 11:04] VITALS: BP 108/62; PULSE 66; O2SAT 96; BMI 29.0
--- OUTSIDE RECORDS SUMMARY | 2024-10-16 13:08 | XMS_ITS | Encounter Summary ---
Author Organization [facility] Address [address] [place] [address] Phone Care Team Providers Care Alterations Expert Name Role Phone Clifford Painting MD Primary Care Provider [phone] Encounter Details Date Type Department Care Team (Late st Contact Info) Description 10/02/2009 [place]ation [facility] [place] [address] [place] [address] Family Medicine, Physician [address] [place], [place] [id number] Social History Tobacco Use Types Packs/Day Years [...] on filedocumented in this encounter Care Teams Alterations Expert Relationship Specialty Start Date End Date Clifford Painting MD [address] [facility] [place] [address] PCP - General 09/17/16 08/01/22 documented as of this encounter
--- OUTSIDE RECORDS SUMMARY | 2024-10-16 13:08 | XMS_ITS | Encounter Summary ---
Author Organization [facility] Address [address] [place] [address] Phone Care Team Providers Care Scale Reclamation Tender Name Role Phone Clifford Painting MD Primary Care Provider Encounter Details Date Type Department Care Team (Late st Contact Info) Description 10/06/2011 Documentation [facility] [place] [address] [place] [address] Family Medicine, Physician [address] [place], [place] [phone] Social History Tobacco Use Types Packs/Day Years [...] on filedocumented in this encounter Care Teams Scale Reclamation Tender Relationship Specialty Start Date End Date Clifford Painting MD [address] [facility] [place] [address] PCP - General 09/17/16 08/01/22 documented as of this encounter
--- OUTSIDE RECORDS SUMMARY | 2024-10-16 13:08 | XMS_ITS | Clinical Summary ---
Author Organization [facility] Address [address] [address] Phone Care Team Providers Care Loss Mitigation Specialist Name Role Phone Pat Ellison MD Primary [...] topic Medical Devices Not on file Insurance [employer] MEDICARE PART A & B [place] & B MEDICARE PART A & B Care Teams Loss Mitigation Specialist Relationship Specialty Start Date End Date Pat Ellison MD [address] [place] [address] PCP - General 06/13/14 Additional Source Comments The information contained in this document represents components of the legal health record. It is not the complete legal health record.[facility]
--- OUTSIDE RECORDS SUMMARY | 2024-10-16 13:08 | XMS_ITS | Encounter Summary ---
Author Organization [facility] Address [address] [place] [address] Phone Care Team Providers Care Quarantine Inspector Name Role Phone Clifford Painting MD Primary Care Provider [phone] Encounter Details Date Type Department Care Team (Late st Contact Info) Description 09/23/2016 Conversion En[place] [facility] [place] [address] [place] [address] Social History Tobacco Use Types Packs/Day Years [...] on filedocumented in this encounter Care Teams Quarantine Inspector Relationship Specialty Start Date End Date Clifford Painting MD [address] [place] [address] PCP - General 09/17/16 08/01/22 documented as of this encounter
--- OUTSIDE RECORDS SUMMARY | 2024-10-16 13:08 | XMS_ITS | Clinical Summary ---
Author Organization [facility] Address [address] [place] [address] Phone Care Team Providers Care Batcher Operator Name Role Phone Unavailable Primary Care Provider [...] 65 04/06/2010 12:00 AM EST Temperature 36.8 C (98.3 F) 05/27/2012 12:00 AM EDT Respiratory Rate - - Oxygen Saturation - [...] 08/07/1996, Additional history exists Influenza Vaccines (#1) 2024 10/05/19 12, 09/29/2010, 02/05/2009, Additional history exists COVID-19 Vaccine ( season) 2024 HIB Vaccines Aged Out 02/20/1992, 06/1991, 1991 [...]
== END 2024-10-16 12:04 | disposition home or self-care (01) ==
LOC: HO.HMCH 10:54
DX: E87.1 Hypo-osmolality and hyponatremia (principal); J98.6 Disorders of diaphragm; J98.11 Atelectasis; R05.9 Cough, unspecified

== ENCOUNTER 2024-10-16 10:53 | Outpatient (REF) | payer MEDICARE, MEDICAID, SELFPAY ==
--- NOTE | ~2024-10-16 | XR_ITS ---
EXAMINATION: XR CHEST 2 VIEWS HISTORY: R06.02 - Shortness of breath COMPARISON: Comparison is made with the prior examination dated 09/03/2024 FINDINGS: PA and lateral views of the chest are submitted. Again seen is elevation of the left hemidiaphragm. There are low lung volumes. Again seen is probable subsegmental atelectasis at the left lung base. There is no pleural effusion, pneumothorax, or pulmonary vascular congestion. The heart is normal in size. There is scoliosis of the spine. XR/XR chest 2V IMPRESSION: Low lung volumes with probable subsegmental atelectasis at the left lung base. Electronically signed by: Nir Villarreal MD 10/16/2024 12:25 PM EDT
[2024-10-16 12:52] LABS: Resp Syncy Virus RNA Qual PCR NEGATIVE (Negative); SARS COV2 PCR INHOUSE NEGATIVE (Negative)
== END 2024-10-16 10:54 | disposition home or self-care (01) ==
LOC: HO.XRAY 10:53
DX: R09.89 Other specified symptoms and signs involving the circulatory and respiratory systems (principal); R06.02 Shortness of breath; E87.1 Hypo-osmolality and hyponatremia; J98.6 Disorders of diaphragm; J98.11 Atelectasis; R05.9 Cough, unspecified; Z79.891 Long term (current) use of opiate analgesic; Z79.899 Other long term (current) drug therapy
CPT/HCPCS: 71046; 87637; 96127; 99212

== ENCOUNTER → 2024-10-16 12:02 | Outpatient (BNV) | payer MEDICARE, MEDICAID, SELFPAY | PROVIDERS: Visit Provider Radiology Diagnostic Radiology | DX: J98.4 Other disorders of lung (principal) | CPT/HCPCS: 71046 ==

== ENCOUNTER 2024-12-17 10:25 | Outpatient (AMB) | payer MEDICARE, MEDICAID, SELFPAY ==
--- NOTE | 2024-12-17 10:27 | A.OFFVIS_ITS ---
Vital Signs 12/17/24 10:28 Height 5 ft 3 in Weight 155 lb 6.814 oz BMI 27.5 BP 126/88 Blood Pressure Location Rt brachial Position Sitting Pulse 87 Pulse Source Pulse Oximeter Pulse Oximetry (%) 96 Oxygen Delivery Method Room Air Intake Visit Reasons: Atelectasis/Cough/Disorders of diaphragm Allergies benzoin (BENZOIN) Allergy (Severe, Verified 12/17/24 10:34) RASH lactose Allergy (Unknown, Verified 12/17/24 10:34) Unknown From UNASYN Allergy (Severe, Uncoded 12/17/24 10:34) RASH HPI HPI Atelectasis/Cough/Disorders of diaphragm: Details: Michael is a pleasant 34 year old male, never smoker, with underlying Iram syndrome, cognitive delay and allergic rhinitis. He was referred by PCP for pulmonary evaluation after abnormal imaging. Today he is accompanied by his mother who provides most of the medical history. He initially had CXR for persistent cough following development of shingles in August. A chest X-ray and subsequent CT scan revealed markedly elevated left hemidiaphragm. Denies prior abnormal imaging, trauma or lung surgeries. 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 The patient has a history of pneumonia during childhood, but no other significant respiratory illnesses were noted. The patient maintains an active lifestyle, regularly exercising without complaints of dyspnea, and can swim as well as walk long distances without appearing labored. Currently denies any respiratory symptoms. However, he experiences chronic postnasal drip and mucus production, which has been a lifelong issue, and was tested for cystic fibrosis due to the mucus production, which was negative. Environmental factors such as allergies have been considered, and allergy testing was performed in the past. There is no family history of respiratory issues, and the patient has no history of asthma or significant secondhand smoke exposure. [facility] Medical History Cognitive developmental delay Surgical History History of nasal surgery History of cranial surgery History of mandibular surgery Family History Father No problems noted. Mother No problems noted. Social History Housing: Other (custodial) Alcohol intake: never Patient Tobacco Use Status: Never used Tobacco Tobacco use type: Cigarette e-Cigarette/Vaping Use: Never Used Second Hand Smoke Exposure: No service: No Current occupational status: disabled Cognitive needs: Yes Hearing needs: No Vision needs: No Review of Systems Const Denies chills, Denies excessive sweating, Denies fever(s), Denies headache(s) and Denies night sweats Eyes Denies dry eyes, Denies irritation and Denies itchy eyes ENT Reports Normal hearing present, Denies headache(s) and Denies sore throat Card Denies chest pain, Denies chest pain at rest, Denies chest pain with activity, Denies claudication, Denies leg edema, Denies dyspnea, Denies dyspnea on exe rtion, Denies orthopnea and Denies paroxysmal nocturnal dyspnea Resp Denies chest congestion, Denies cough, Denies pain on inspiration, Denies pain with cough, Denies dyspnea, Denies dyspnea on exertion and Denies stridor Musc Denies myalgias Neuro Reports Normal hearing present and Denies headache(s) Endo Denies excessive sweating Jaya/Lymph Denies lymphadenopathy Aller/Immun Denies itchy eyes and Denies seasonal rhinorrhea Physical Exam Vital Signs: Last Vital Signs Pulse 87 12/17/24 10:28 BP 126/88 12/17/24 10:28 Pulse Ox 96 12/17/24 10:28 Oxygen Delivery Method Room Air 12/17/24 10:28 BMI result Body Mass Index 27.5 Const General: cooperative, healthy appearing, comfortable, no acute distress, well developed and alert Orientation/consciousness: patient oriented x3 Neck Neck: Yes normal visual inspection and Yes no lymphadenopathy Lymphatic: no lymphadenopathy noted Chest Chest palpation & inspection: normal inspection of the chest Resp Effort & Inspection: normal respiratory effort, able to speak in complete sentences, no audible wheezes, no cough, no stridor, not tachypneic, no tripod positioning and no use of accessory muscles Cardio Jugular venous distension: no JVD Rate: regular rate Rhythm: regular rhythm Skin Other: warm, dry General skin exam: no rashes or lesions noted Neuro General: patient oriented x3 Cranial nerves: Yes Normal hearing present Cognition (Neuro): normal cognition Extrem General: Yes normal to inspection, Yes capillary refill normal, Yes no clubbing, cyanosis or edema and Yes no pedal edema Psych Appearance: grossly normal and well kempt Speech and movement: Normal speech and movement present and Clear speech present Attitude: cooperative Thought process: Normal thought process present Thought content: Normal thought content present Assessment & Plan Assessment & Plan (1) 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 If the sniff test indicates diaphragm paralysis, surgical intervention may be considered, although it is typically reserved for symptomatic cases due to the limited improvement in lung function post-surgery. Environmental factors such as allergies are being considered, and allergy testing is recommended to identify potential triggers for the chronic postnasal drip. All questions were answered and patient is in agreement of plan. Will follow up to review results or sooner if needed. Orders: Orders Resp Allergy Profile Region I Today Z91.09 - Other allergy status, other than to drugs and biological substances Immunoglobulin E Today Z91.09 - Other allergy status, other than to drugs and biological substances PFT pulmonary function test Today J98.6 - Disorders of diaphragm IR fluoroscopy <1hr Today J98.6 - Disorders of diaphragm Complete Blood Count Auto Diff Today Z91.09 - Other allergy status, other than to drugs and biological substances Coding Level of Care Code New Pt Level 4 (76264) Diagnoses Elevated hemidiaphragm J98.6 Environmental allergies Z91.09
[2024-12-17 10:28] VITALS: BP 126/88; PULSE 87; O2SAT 96; BMI 27.5
--- OUTSIDE RECORDS SUMMARY | 2024-12-17 12:13 | XMS_ITS | Encounter Summary ---
Author Organization [facility] Address [address] [place] [address] Phone Care Team Providers Care Secret Service Agent Name Role Phone Clifford Painting MD Primary Care Provider [phone] Encounter Details Date Type Department Care Team (Late st Contact Info) Description 10/02/2009 Documentation [facility] [place] [address] [place] [address] Family Medicine, Physician [address] [place], [place] [phone] Social History Tobacco Use Types Packs/Day Years [...] on filedocumented in this encounter Care Teams Secret Service Agent Relationship Specialty Start Date End Date Clifford Painting MD [address] [facility] [place] [address] PCP - General 09/17/16 08/01/22 documented as of this encounter
--- OUTSIDE RECORDS SUMMARY | 2024-12-17 12:14 | XMS_ITS | Encounter Summary ---
Author Organization [facility] Address [address] [place] [address] Phone Care Team Providers Care Lay Brother Name Role Phone Clifford Painting MD Primary Care Provider [phone] Encounter Details Date Type Department Care Team (Late st Contact Info) Description 09/23/2016 Conversion Encounter [facility] [place] [address] [place] [address] Social History Tobacco Use Types Packs/Day Years [...] on filedocumented in this encounter Care Teams Lay Brother Relationship Specialty Start Date End Date Clifford Painting MD [address] [place] [address] PCP - General 09/17/16 08/01/22 documented as of this encounter
--- OUTSIDE RECORDS SUMMARY | 2024-12-17 12:14 | XMS_ITS | Clinical Summary ---
Author Organization [facility] Address [address] [address] Phone Care Team Providers Care Marine Engineering Technicians Name Role Phone Pat Ellison MD Primary [...] YEARS) 08/18/2009 Adult Td,Tdap Booster 10/03/2017 10/04/2007 INFLUENZA VACCINE (#1) 2024 , 12/29/2021, 10/22/2020, Additional history exists COVID-19 VACCINE ( season) 2024 10/02/2021, 02/02/2021, 03/14/2020, Additional history exists HEPATITIS A VACCINES Aged Out No long er eligible based on patient's age to complete this topic HIB VACCINES Aged Out No longer eligi ble based on patient's age to complete this topic IPV VACCINES Aged Out No longer eligi ble [...] topic Medical Devices [place] [phone] MEDICARE PART A & B [facility] MEDICARE PART A & B [place] PART [place] & B [facility] MEDICARE PART A & B Care Teams Marine Engineering Technicians Relationship Specialty Start Date End Date Pat Ellison MD [address] [place] [address] PCP - General 06/13/14 Additional Source Comments The information contained in this document represents components of the legal health record. It is not the complete legal health record.[facility]
--- OUTSIDE RECORDS SUMMARY | 2024-12-17 12:14 | XMS_ITS | Clinical Summary ---
Author Organization [facility] Address [address] [place] [address] Phone Care Team Providers Care Tailer Off Name Role Phone Unavailable Primary Care Provider [...] 09/29/2010, 02/05/2009, Additional history exists COVID-19 Vaccine (2024- season) 2024 HIB Vaccines Aged Out 02/20/1992, [...]
--- OUTSIDE RECORDS SUMMARY | 2024-12-17 12:14 | XMS_ITS | Encounter Summary ---
Author Organization [facility] Address [address] [place] [address] Phone Care Team Providers Care Lavender Farm Worker Name Role Phone Clifford Painting MD Primary Care Provider [phone] Encounter Details Date Type Department Care Team (Late st Contact Info) Description 10/06/2011 Documentation [facility] [place] Family Medicine [address] [place] [address] Family Medicine, Physician [address] [place], [place] [phone] Social History Tobacco Use Types Packs/Day Years [...] on filedocumented in this encounter Care Teams Lavender Farm Worker Relationship Specialty Start Date End Date Clifford Painting MD 150 [facility] [place] Rossi [address] PCP - General 09/17/16 08/01/22 documented as of this encounter
== END 2024-12-17 11:05 | disposition home or self-care (01) ==
LOC: HO.HPS 10:27
PROVIDERS: Visit Provider Nurse Practitioner Family
DX: J98.6 Disorders of diaphragm (principal); Z91.09 Other allergy status, other than to drugs and biological substances
CPT/HCPCS: 99204

== ENCOUNTER → 2024-12-17 10:25 | Outpatient (BNVA) | payer MEDICARE, MEDICAID, SELFPAY | PROVIDERS: Visit Provider Nurse Practitioner Family | DX: J98.6 Disorders of diaphragm (principal); Z91.09 Other allergy status, other than to drugs and biological substances | CPT/HCPCS: 99202 ==

== ENCOUNTER 2024-12-19 15:02 | Outpatient (REF) | payer MEDICARE, MEDICAID, SELFPAY ==
[2024-12-19 15:10] LABS: MANUAL DIFF FLAG NO
[2024-12-19 15:36] LABS: Hematocrit 44.9 % (42.0-52.0); Hemoglobin 15.5 g/dl (14.0-18.0); Imm Gran Abs Auto 0.05 X10*3/uL (0.00-0.03); Imm Gran Pct Auto 0.8 % (0.0-0.4); Lymphocytes Absolute Auto 1.4 X10*3/uL (1.2-4.9); Mean Corpuscular HGB Conc 34.5 g/dl (31.0-36.0); Mean Corpuscular Hemoglobin 31.5 pg (27.0-33.0); Mean Corpuscular Volume 91.3 fL (80.0-98.0); NRBC Abs Auto 0.000 X10*3/uL (0.0-0.012); NRBC Pct Auto 0.0 /100WBC (0.0-0.2); Platelet Count 263 X10*3/uL (160-400); Red Blood Count 4.92 X10*6/uL (4.60-5.80); White Blood Count 6.0 X10*3/uL (4.8-10.8)
--- OUTSIDE RECORDS SUMMARY | 2024-12-19 18:22 | XMS_ITS | Encounter Summary ---
Author Organization [facility] Address [address] [place] [address] Phone Care Team Providers Care Mammography Supervisor Name Role Phone Clifford Painting MD Primary Care Provider [phone] Encounter Details Date Type Department Care Team (Late st Contact Info) Description 10/06/2011 Documentation [facility] [place] Family Medicine [address] [place] [address] Family Medicine, Physician [address] [place], [place] [phone] Social History Tobacco Use Types Packs/Day Years [...] on filedocumented in this encounter Care Teams Mammography Supervisor Relationship Specialty Start Date End Date Clifford Painting MD 150 [facility] [place] Shah [address] PCP - General 09/17/16 08/01/22 documented as of this encounter
--- OUTSIDE RECORDS SUMMARY | 2024-12-19 18:22 | XMS_ITS | Encounter Summary ---
Author Organization [facility] Address [address] [place] [address] Phone Care Team Providers Care Case Management Associate Name Role Phone Clifford Painting MD Primary Care Provider [phone] Encounter Details Date Type Department Care Team (Late st Contact Info) Description 10/02/2009 Documentation [facility] [place] Family Medicine [address] [place] [address] Family Medicine, Physician [address] [place], [place] [phone] Social History Tobacco Use Types Packs/Day Years [...] on filedocumented in this encounter Care Teams Case Management Associate Relationship Specialty Start Date End Date Clifford Painting MD 150 [facility] [place] Shah [address] PCP - General 09/17/16 08/01/22 documented as of this encounter
--- OUTSIDE RECORDS SUMMARY | 2024-12-19 18:22 | XMS_ITS | Encounter Summary ---
Author Organization [facility] Address [address] [place] [address] Phone Care Team Providers Care Barrel Dedenting Machine Operator Name Role Phone Clifford Painting MD Primary Care Provider [phone] Encounter Details Date Type Department Care Team (Late st Contact Info) Description 09/23/2016 Conversion Encounter [facility] [place] [address] [place] [address] Social History Tobacco Use Types Packs/Day Years [...] on filedocumented in this encounter Care Teams Barrel Dedenting Machine Operator Relationship Specialty Start Date End Date Clifford Painting MD 150 [place] [address] PCP - General 09/17/16 08/01/22 documented as of this encounter
--- OUTSIDE RECORDS SUMMARY | 2024-12-19 18:22 | XMS_ITS | Clinical Summary ---
Author Organization [facility] Address [address] [place] [address] Phone Care Team Providers Care Vocational Counselor Name Role Phone Unavailable Primary Care Provider [...]
--- OUTSIDE RECORDS SUMMARY | 2024-12-19 18:22 | XMS_ITS | Clinical Summary ---
Author Organization [facility] Address [address] [address] Phone Care Team Providers Care Ship'S Surveyor Name Role Phone Pat Ellison MD Primary [...] topic Medical Devices Not [place] [phone] MEDICARE PART A & B [facility] A & B [place]IC[place] A & B [facility] MEDICARE PART A & B Care Teams Ship'S Surveyor Relationship Specialty Start Date End Date Pat Ellison MD [address] [place] [address] PCP - General 06/13/14 Additional Source Comments The information contained in this document represents components of the legal health record. It is not the complete legal health record.[facility]
[2024-12-28 13:40] LABS: Class Mouse Urine Protein 3
[2024-12-28 13:41] LABS: Class Cat Dander 3; Class Cockroach 0; Class Dermatophagoides farinae 0; D002 - IgE D farinae <0.10; E001 - IgE Cat Dander 9.41; I006-IgE Cockroach, German <0.10
[2024-12-28 13:42] LABS: Class Alternaria alternata 2; Class Aspergillus fumigatus 2; Class Cladosporium herbarum 2; Class Dog Dander 3; Class Timothy Grass 2; E005 - IgE Dog Dander 16.80; G006 - IgE Timothy Grass 1.17; M002 - IgE Cladosporium herbar 1.67; M003 - IgE Aspergillus fumigat 2.01; M006 - IgE Alternaria alternat 1.50
[2024-12-28 13:43] LABS: Class Cottonwood 1; Class Mountain Cedar 0/1; Class Oak 1; Class Sycamore 1; Class Walnut Tree 2; Class White Ash 1; T006 - IgE Cedar, Mountain 0.30; T007 - IgE Oak, White 0.49; T010 - IgE Walnut 0.73; T011 - IgE Maple Leaf Sycamore 0.45; T014 - IgE Cottonwood 0.69; T015 - IgE Ash, White 0.66
[2024-12-28 13:44] LABS: Class Common Ragweed 1; Class White Mulberry 0/1; T070 - IgE White Mulberry 0.13; W001 - IgE Ragweed, Short 0.41; W006 - IgE Mugwort 0.10
[2024-12-28 13:45] LABS: Class Bermuda Grass 1; Class Mugwort 0/1; Class Penicillium crysogenum 1
[2024-12-28 13:49] LABS: Class Birch 1; Class Elm 2; Class Maple Box Elder 2; Class Rough Pigweed 0/1; T001 IgE Maple/Box Elder 0.71; T008 IgE Elm, American 0.79; W014 IgE Pigweed, Common 0.17
[2024-12-28 13:50] LABS: Class Sheep Sorrel 0/1; W018 IgE Sheep Sorrel 0.30
[2024-12-28 13:53] LABS: Class Derm. pterony 0/1
== END 2024-12-19 15:03 | disposition home or self-care (01) ==
LOC: HO.LAB 15:02
PROVIDERS: Visit Provider Nurse Practitioner Family
DX: Z91.09 Other allergy status, other than to drugs and biological substances (principal)
CPT/HCPCS: 36415; 82785; 85025; 86003

== ENCOUNTER 2025-01-23 14:01 | Outpatient (REF) | payer MEDICARE, MEDICAID, SELFPAY ==
--- NOTE | ~2025-01-23 | FL_ITS ---
FLUOROSCOPIC SNIFF TEST HISTORY: Disorders of diaphragm. Rule out diaphragmatic paresis/paralysis. COMPARISON: Chest radiograph 10/16/2024. TECHNIQUE: Under direct fluoroscopic visualization, the patient was asked to sniff , as well as inhale and exhale normally. The diaphragms were observed. FINDINGS: Notable elevation of the left hemidiaphragm is present. Both diaphragms moved in the appropriate direction on sniff testing and on normal in handle and exhale. No subcuticular paradoxical motion was evident to suggest paresis or paralysis. Fluoroscopic time: 25 seconds. DAP: 491.7 uGym2 3 cine runs stored. FL/FL Sniff Test IMPRESSION: 1. There is an elevated left hemidiaphragm. 2. There is no evidence of diaphragmatic paresis or paralysis. Electronically signed by: Sabas Hernandez MD 01/23/2025 03:02 PM JULEE
--- OUTSIDE RECORDS SUMMARY | 2025-01-23 18:40 | XMS_ITS | Clinical Summary ---
Author Organization [facility] Address [address] [place] [address] Phone Care Team Providers Care Handstitching Machine Collar Feller Name Role Phone Unavailable Primary Care Provider [...]
--- OUTSIDE RECORDS SUMMARY | 2025-01-23 18:40 | XMS_ITS | Encounter Summary ---
Author Organization [facility] Address [address] [place] [address] Phone Care Team Providers Care Receiving Clerk Name Role Phone Clifford Painting MD Primary Care Provider Encounter Details Date Type Department Care Team (Late st Contact Info) Description 10/02/2009 Documentation [facility] [place] Family Medicine [address] [place] [address] Family Medicine, Physician [address] [place], [place] [phone] Social History Tobacco Use Types Packs/Day Years [...] on filedocumented in this encounter Care Teams Receiving Clerk Relationship Specialty Start Date End Date Clifford Painting MD 150 [facility] [place] Ross[place] [address] PCP - General 09/17/16 08/01/22 documented as of this encounter
--- OUTSIDE RECORDS SUMMARY | 2025-01-23 18:40 | XMS_ITS | Encounter Summary ---
Author Organization [facility] Address [address] [place] [address] Phone Care Team Providers Care Dry Transfer Worker Name Role Phone Clifford Painting MD Primary Care Provider [phone] Encounter Details Date Type Department Care Team (Late st Contact Info) Description 10/06/2011 [place] [facility] [place] [address] [place] [address] Family Medicine, Physician [address] [place], [place] [phone] Social History Tobacco Use Types Packs/Day Years [...] on filedocumented in this encounter Care Teams Dry Transfer Worker Relationship Specialty Start Date End Date Clifford Painting MD 150 [facility] [place] Ross[place] [address] PCP - General 09/17/16 08/01/22 documented as of this encounter
--- OUTSIDE RECORDS SUMMARY | 2025-01-23 18:40 | XMS_ITS | Clinical Summary ---
Author Organization [facility] Address [address] [address] Phone Care Team Providers Care Superintendent Division Name Role Phone Pat Ellison MD Primary [...] topic Medical Devices Not on file Insurance [employer] MEDICARE PART A & B [facility] MEDIC[facility] A & B [facility] MEDICARE PART A & B [place] PART [place] A & B [facility] MEDICARE PART A & B Care Teams Superintendent Division Relationship Specialty Start Date End Date Pat Ellison MD [address] [place] [address] PCP - General 06/13/14 Additional Source Comments The information contained in this document represents components of the legal health record. It is not the complete legal health record.[facility]
--- OUTSIDE RECORDS SUMMARY | 2025-01-23 18:40 | XMS_ITS | Encounter Summary ---
Author Organization [facility] Address [address] [place] [address] Phone Care Team Providers Care Engraver Wood Name Role Phone Clifford Painting MD Primary Care Provider [phone] Encounter Details Date Type Department Care Team (Late st Contact Info) Description 09/23/2016 Conversion Encounter [facility] [place] [address] [place] [address] Social History Tobacco Use Types Packs/Day Years [...] on filedocumented in this encounter Care Teams Engraver Wood Relationship Specialty Start Date End Date Clifford Painting MD [address] [place] [address] PCP - General 09/17/16 08/01/22 documented as of this encounter
== END 2025-01-23 14:02 | disposition home or self-care (01) ==
LOC: HO.XRAY 14:01
PROVIDERS: Visit Provider Nurse Practitioner Family
DX: J98.6 Disorders of diaphragm (principal)
CPT/HCPCS: 76000